=== PATIENT | female | born 1965 | race Caucasian/White ===

== ENCOUNTER 2019-07-30 18:14 | Inpatient (IN) | payer MEDICARE ==
[2019-07-30] MEDS ORDERED: Ondansetron 4 MG/2 ML SDV IVPUSH ONE (18:26)
[2019-07-30] MEDS ORDERED: Pantoprazole 40 MG Vial IVPUSH ONE (18:26)
[2019-07-30] MEDS ORDERED: cefTRIAXone 1 GM in Sodium Chloride 0.9% 100 ML IV ONE (18:26)
[2019-07-30] MEDS ORDERED: metroNIDAZOLE/Normal Saline 500 MG in Premix Bag 1 BAG IV ONE (18:26)
[2019-07-30] MEDS ORDERED: Lactated Ringers 1,000 ML IV ONE (18:26)
[2019-07-30] MEDS ORDERED: Famotidine 20 MG/2 ML SDV IVPUSH ONE (18:26)
--- NOTE | 2019-07-30 18:26 | EDM.PDOC ---
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 dose of IV television the emergency room for pain control. Note that IV Rocephin and IV Flagyl were initiated immediately after blood cultures 2 and urine specimen for culture and sensitivity were obtained. Abdominal pain improved with the above therapy. Patient was also started on a 1 L LR IV bolus of lactated Ringer's with continuation of IV fluids during this hospitalization. She will be initially kept nothing by mouth. Abdominal checks with vitals. Surgical consultation depending on her clinical course. Patient does still need a screening colonoscopy with consideration of colonoscopy and/additional EGD in about 4 weeks. Repeat x-rays and laboratories in the a.m. (2) Peptic reflux disease SNOMED Code(s): 919940942 Code(s): K21.9 - GASTRO-ESOPHAGEAL REFLUX DISEASE WITHOUT ESOPHAGITIS Status: Chronic Priority: Medium Current Visit: Yes Annotation/Comment:: Stable by history. Note high-dose IV Pepcid and Protonix given in the emergency room, which will be continued during this hospitalization. (3) Iron deficiency anemia SNOMED Code(s): 67723594 Code(s): D50.9 - IRON DEFICIENCY ANEMIA, UNSPECIFIED Status: Chronic Priority: Medium Current Visit: Yes Annotation/Comment:: Iron studies in the a.m. Qualifiers: Iron deficiency anemia type: other iron deficiency Qualified Code(s): D50.8 - Other iron deficiency anemias (4) Eczema SNOMED Code(s): 31205068 Code(s): L30.9 - DERMATITIS, UNSPECIFIED Status: Chronic Priority: Medium Current Visit: Yes Annotation/Comment:: Mild sternal eczemastable by history with previous nonresponsiveness to topical steroid cream. Observe for now. Qualifiers: Eczema type: other Qualified Code(s): L30.8 - Other specified dermatitis (5) Obesity (BMI 35.0-39.9 without comorbidity) SNOMED Code(s): 562133740, 429164008 Code(s): E66.9 - OBESITY, UNSPECIFIED Status: Chronic Priority: Medium Current Visit: Yes Annotation/Comment:: Weight loss in moderation advisable with low-fat, low-cholesterol diet provided at discharge. - Problem List Review Problem List Initiated/Reviewed/Updated: Yes - My Orders Last 24 Hours: My Active Orders 07/30/19 18:26 Peripheral IV Care [RC] . DIRECTED Sodium Chloride 0.9% [Saline Flush] 10 ml FLUSH ASDIRECTED PRN Blood Culture x2 Reflex Set [OM.PC] Urgent Obtain Past Medical Record [OM.PC] Urgent Peripheral IV Insertion Adult [OM.PC] Stat Resuscitation Status Stat 07/30/19 18:30 CULTURE URINE [RM] Stat 07/30/19 18:32 Abdomen Pelvis w Cont [CT] Stat 07/30/19 18:38 CULTURE BLOOD [BC] Stat 07/30/19 18:44 CULTURE BLOOD [BC] Stat 07/30/19 Breakfast Nothing Per Oral Diet [DIET] - Assessment/Plan Admission H&P: Please use this note as an admission H&P Last 24 Hours: My Active Orders 07/30/19 18:26 Peripheral IV Care [RC] . DIRECTED Sodium Chloride 0.9% [Saline Flush] 10 ml FLUSH ASDIRECTED PRN Blood Culture x2 Reflex Set [OM.PC] Urgent Obtain Past Medical Record [OM.PC] Urgent Peripheral IV Insertion Adult [OM.PC] Stat Resuscitation Status Stat 07/30/19 18:30 CULTURE URINE [RM] Stat 07/30/19 18:32 Abdomen Pelvis w Cont [CT] Stat 07/30/19 18:38 CULTURE BLOOD [BC] Stat 07/30/19 18:44 CULTURE BLOOD [BC] Stat 07/30/19 Breakfast Nothing Per Oral Diet [DIET] Assessment:: As above Plan: As above. Extensive precautions were given to the patient, who is in agreement with the treatment plan. Elvin Farley M.D. at the [facility] assumes care in the a.m.. The patient will require about 3-4 days of inpatient/ acute care secondary to multiple health problems as above.
[2019-07-30] MEDS ORDERED: Iopamidol 612 MG/ML 100 ML Bottle ONE (19:05)
[2019-07-30] MEDS ORDERED: Iopamidol 612 MG/ML 100 ML Bottle IVPUSH ONE (20:00)
[2019-07-30] MEDS ORDERED: Temazepam 15 MG Cap PO PRN (20:00)
[2019-07-30] MEDS ORDERED: Acetaminophen 325 MG Tab PO ONE (20:28)
[2019-07-30] MEDS ORDERED: HYDROmorphone 1 MG/ML Syringe IVPUSH ONE (20:51)
[2019-07-30] MEDS: D5 1/2 NS w/ 20 mEq/L KCl 1,000 ML IV SCH (23:07)
[2019-07-31] MEDS ORDERED: Ondansetron 4 MG/2 ML SDV IVPUSH PRN (01:00)
[2019-07-31] MEDS: HYDROmorphone 0.5 MG/0.5 ML Syringe IVPUSH PRN ×3 (01:57→15:21)
[2019-07-31] MEDS: Acetaminophen 325 MG Tab PO PRN ×4 (03:30→23:55)
[2019-07-31] MEDS: traMADol 50 MG Tab PO PRN ×2 (03:30→11:57)
[2019-07-31] MEDS: metroNIDAZOLE/Normal Saline 500 MG in Premix Bag 1 BAG IV SCH ×3 (03:34→20:31)
[2019-07-31] MEDS: Sodium Chloride 0.9% 10 ML Syringe FLUSH PRN ×5 (03:35→15:22)
[2019-07-31] MEDS: Famotidine 20 MG/2 ML SDV IVPUSH SCH ×2 (06:02→17:38)
[2019-07-31] MEDS: Sodium Chloride 0.9% 10 ML Syringe FLUSH SCH ×2 (08:35→19:49)
[2019-07-31] MEDS: Pantoprazole 40 MG Vial IVPUSH SCH ×2 (08:35→19:49)
[2019-07-31] MEDS: cefTRIAXone 1 GM in Sodium Chloride 0.9% 100 ML IV SCH ×2 (08:35→19:47)
[2019-07-31 08:46] LABS: CHLORIDE,CL 105 mmol/L (98-107); SODIUM,NA 139 mmol/L (136-145)
[2019-07-31] MEDS: D5 1/2 NS w/ 20 mEq/L KCl 1,000 ML IV SCH (11:38)
--- NOTE | 2019-07-31 20:09 | PCM.PN ---
- General Info Date of Service: 07/31/19 Admission Dx/Problem (Free Text): Patient is seen with left lower quadrant pain admitted to the hospital secondary to diverticulitis Functional Status: Reports: Pain Controlled - Review of Systems General: Reports: Weakness HEENT: Reports: No Symptoms Pulmonary: Reports: No Symptoms Cardiovascular: Reports: No Symptoms Gastrointestinal: Reports: Abdominal Pain Genitourinary: Reports: No Symptoms Musculoskeletal: Reports: No Symptoms Skin: Reports: No Symptoms Neurological: Reports: No Symptoms Psychiatric: Reports: No Symptoms - Patient Data Vitals - Most Recent: Last Vital Signs Temp 101.1 F H 07/31/19 19:53 Pulse 84 07/31/19 19:53 Resp 17 07/31/19 19:53 BP 114/65 07/31/19 19:53 Pulse Ox 95 07/31/19 19:53 Weight - Most Recent: 212 lb 7.986 oz I&O - Last 24 Hours: Intake & Output 07/31/19 07/31/19 07/31/19 06:59 14:59 22:59 Intake Total 2226 90 585 Output Total 400 100 900 Balance 1826 -10 -315 Lab Results Last 24 Hours: Laboratory Results - last 24 hr 07/31/19 07/31/19 07/31/19 Range/Units 07:10 07:10 07:10 WBC 13.3 H (4.0-10.2) K/uL RBC 4.16 (3.77-5.09) M/uL Hgb 12.6 D (11.7-15.5) g/dL Hct 38.8 (34.0-46.0) % MCV 93.3 (84.0-98.0) fL MCH 30.3 (28.2-33.3) pg MCHC 32.5 (31.7-36.0) g/dL RDW 13.4 (11.2-14.1) % Plt Count 175 (150-350) K/uL Neut % (Auto) 77.0 (45.0-80.0) % Lymph % (Auto) 10.9 (10.0-50.0) % [place] % (Auto) 10.8 (2.0-14.0) % Eos % (Auto) 1.1 (0.0-5.0) % Baso % (Auto) 0.2 (0.0-2.0) % Neut # (Auto) 10.26 H (1.40-7.00) K/uL Lymph # (Auto) 1.45 (0.50-3.50) K/uL [place] # (Auto) 1.44 H (0.00-1.00) K/uL Eos # (Auto) 0.14 (0.00-0.50) K/uL Baso # (Auto) 0.03 (0.00-0.20) K/uL Sodium 139 (136-145) mmol/L Potassium 3.9 (3.5-5.1) mmol/L Chloride 105 (98-107) mmol/L Carbon Dioxide 23.1 (21.0-32.0) mmol/L BUN 13 (7-18) mg/dL Creatinine 0.95 (0.51-1.17) mg/dL Est Cr Clr Drug Dosing 64.11 mL/min Estimated GFR (MDRD) > 60 mL/min Glucose 113 H (74-106) mg/dL Calcium 8.1 L (8.5-10.1) mg/dL Iron 14 L (50-175) ug/dL TIBC 232 L (250-450) ug/dL % Saturation 6.72954 Ferritin 211 (8-388) ng/mL Total Bilirubin 0.6 (0.2-1.0) mg/dL AST 8 L (15-37) U/L ALT 15 (12-78) U/L Alkaline Phosphatase 56 (46-116) IU/L Total Protein 6.8 (6.4-8.2) g/dL Albumin 2.9 L (3.4-5.0) g/dL Vitamin B12 351 (193-986) pg/mL Michele Results Last 24 Hours: Microbiology 07/30/19 18:44 Aerobic Blood Culture - Preliminary Blood - Venous - Lab Draw NO GROWTH AFTER 1 DAY Anaerobic Blood Culture - Preliminary NO GROWTH AFTER 1 DAY 07/30/19 18:38 Aerobic Blood Culture - Preliminary Blood - Venous NO GROWTH AFTER 1 DAY Anaerobic Blood Culture - Preliminary NO GROWTH AFTER 1 DAY 07/31/19 16:15 Stool Occult Blood (MICHELE) - Final Stool / Feces 07/31/19 16:15 Stool Occult Blood (MICHELE) - Final Stool / Feces 07/30/19 18:50 Stool Occult Blood (MICHELE) - Final Stool / Feces Med Orders - Current: Current Medications Acetaminophen (Tylenol) 650 mg PO Q4H PRN PRN Reason: Pain Last Admin: 07/31/19 17:23 Dose: 650 mg Famotidine (Pepcid) 20 mg IVPUSH Q12H [facility] Last Admin: 07/31/19 17:38 Dose: 20 mg Hydromorphone HCl (Dilaudid) 0.5 mg IVPUSH Q4H PRN PRN Reason: Pain (severe 7-10) Last Admin: 07/31/19 15:21 Dose: 0.5 mg Potassium Chloride/Dextrose/Sod Cl (D5 1/2 Ns W/ 20 Meq/L Kcl) 1,000 mls @ 100 mls/hr IV ASDIRECTED [facility] Last Admin: 07/31/19 11:38 Dose: 100 mls/hr Ceftriaxone Sodium 1 gm/ (Sodium Chloride) 100 mls @ 200 mls/hr IV Q12H [facility] Last Admin: 07/31/19 19:47 Dose: 200 mls/hr Metronidazole 500 mg/ Premix 100 mls @ 100 mls/hr IV Q8H [facility] Last Infusion: 07/31/19 12:35 Dose: Infused Influenza Virus Vaccine (Pharmacy To Dose - Influenza Vaccine) 1 each IM ONETIME ONE Stop: 07/31/19 16:46 Ondansetron HCl (Zofran) 4 mg IVPUSH Q6H PRN PRN Reason: Nausea/Vomiting Pantoprazole Sodium (Protonix Iv) 40 mg IVPUSH Q12H [facility] Last Admin: 07/31/19 19:49 Dose: 40 mg Sodium Chloride (Saline Flush) 10 ml FLUSH ASDIRECTED PRN PRN Reason: Keep Vein Open Last Admin: 07/31/19 15:22 Dose: 10 ml Sodium Chloride (Saline Flush) 10 ml FLUSH Q12HR [facility] Last Admin: 07/31/19 19:49 Dose: 10 ml Temazepam (Restoril) 15 mg PO DAILY@2000 PRN PRN Reason: Insomnia Last Admin: 07/30/19 23:16 Dose: 15 mg Tramadol HCl (Ultram) 50 mg PO Q6H PRN PRN Reason: Pain (moderate 4-6) Last Admin: 07/31/19 11:57 Dose: 50 mg Discontinued Medications Acetaminophen (Tylenol) 650 mg PO NOW ONE Stop: 07/30/19 20:29 Last Admin: 07/30/19 20:48 Dose: 650 mg Famotidine (Pepcid) 40 mg IVPUSH ONETIME ONE Stop: 07/30/19 18:27 Last Admin: 07/30/19 19:18 Dose: 40 mg Hydromorphone HCl (Dilaudid) 1 mg IVPUSH ONETIME ONE Stop: 07/30/19 20:52 Last Admin: 07/30/19 21:02 Dose: 1 mg Ceftriaxone Sodium 1 gm/ (Sodium Chloride) 100 mls @ 200 mls/hr IV ONETIME ONE Stop: 07/30/19 18:55 Last Admin: 07/30/19 19:04 Dose: 200 mls/hr Lactated Ringer's (Ringers, Lactated) 1,000 mls @ 999 mls/hr IV .BOLUS ONE Stop: 07/30/19 19:26 Last Admin: 07/30/19 20:59 Dose: 999 mls/hr Metronidazole 500 mg/ Premix 100 mls @ 100 mls/hr IV ONETIME ONE Stop: 07/30/19 19:25 Last Admin: 07/30/19 19:42 Dose: 100 mls/hr Iopamidol (Isovue-300 (61%)) 100 ml IVPUSH ONETIME ONE Stop: 07/30/19 20:01 Last Admin: 07/30/19 20:30 Dose: 100 ml Iopamidol (Isovue-300 (61%)) Confirm Administered Dose 100 ml .ROUTE .STK-MED ONE Stop: 07/30/19 19:06 Ondansetron HCl (Zofran) 4 mg IVPUSH ONETIME ONE Stop: 07/30/19 18:27 Last Admin: 07/30/19 19:14 Dose: 4 mg Pantoprazole Sodium (Protonix Iv) 40 mg IVPUSH ONETIME ONE Stop: 07/30/19 18:27 Last Admin: 07/30/19 19:18 Dose: 40 mg - Exam General: Alert, Oriented HEENT: Pupils Equal, Pupils Reactive, EOMI, Mucous Membr. Moist/[place] Neck: Supple Lungs: Clear to Auscultation, Normal Respiratory Effort Cardiovascular: Regular Rate, Regular Rhythm GI/Abdominal Exam: Guarding, Tender Back Exam: Normal Inspection, Full Range of Motion Extremities: Normal Inspection, Normal Range of Motion, Non-Tender, No Pedal Edema, Normal Capillary Refill Skin: Warm, Dry, Intact Neurological: No New Focal Deficit Psy/Mental Status: Alert, Normal Affect, Normal Mood - Problem List & Annotations (1) Diverticulitis SNOMED Code(s): 015698755 Code(s): K57.92 - DVTRCLI OF INTEST, PART UNSP, W/O PERF OR ABSCESS W/O BLEED Status: Acute Priority: High Current Visit: Yes Onset Date: ~07/28 Annotation/Comment:: . Patient started on antibiotic and pain control and did well till today we will now has increased discomfort at this time I will continue monitoring her medications and see if she becomes afebrile or ecchymosis of symptoms of we do have a CT which shows significant diverticulitis with possible mitral perforation - Problem List Review Problem List Initiated/Reviewed/Updated: Yes - My Orders Last 24 Hours: My Active Orders 07/30/19 22:41 Consult to Case Management/Green Chain Marker [CONS] Routine 07/31/19 16:45 Influenza Vaccine Charge [RC] .DISCHARGE Pharmacy to Dose - InFluenza V [Pharmacy to Dose - InFluenza Vaccine] 1 each IM ONETIME ONE
[2019-08-01] MEDS: D5 1/2 NS w/ 20 mEq/L KCl 1,000 ML IV SCH ×2 (00:21→11:58)
[2019-08-01] MEDS: metroNIDAZOLE/Normal Saline 500 MG in Premix Bag 1 BAG IV SCH ×2 (04:06→11:58)
[2019-08-01] MEDS: Famotidine 20 MG/2 ML SDV IVPUSH SCH ×2 (05:00→17:35)
[2019-08-01] MEDS: HYDROmorphone 0.5 MG/0.5 ML Syringe IVPUSH PRN ×2 (06:42→15:41)
[2019-08-01] MEDS: Sodium Chloride 0.9% 10 ML Syringe FLUSH PRN ×3 (06:45→15:55)
[2019-08-01] MEDS ORDERED: Aluminum Hydroxide/Magnesium Hydroxide/Simethicone Susp 30 ML Cup PO PRN (07:51)
[2019-08-01] MEDS: Acetaminophen 325 MG Tab PO PRN ×2 (08:59→16:39)
[2019-08-01] MEDS: Pantoprazole 40 MG Vial IVPUSH SCH (08:59)
[2019-08-01] MEDS: Sodium Chloride 0.9% 10 ML Syringe FLUSH SCH ×2 (08:59→19:29)
[2019-08-01] MEDS: cefTRIAXone 1 GM in Sodium Chloride 0.9% 100 ML IV SCH ×2 (09:01→19:24)
[2019-08-01 09:21] LABS: CHLORIDE,CL 106 mmol/L (98-107); SODIUM,NA 140 mmol/L (136-145)
--- NOTE | 2019-08-01 10:00 | PCM.PN ---
- General Info Date of Service: 08/01/19 Admission Dx/Problem (Free Text): 1. Diverticulitis with microperforation 2. Peritonitis Functional Status: Reports: Pain Controlled, Ambulating, Urinating. Denies: Tolerating Diet (Still nothing by mouth, however patient is wishing to have breakfast.), New Symptoms, Incentive Spirometry Pain Score: 4 - Review of Systems General: Reports: Fever (Resolved this morning with maximum temperature of 38.4 C during the last 24 hours). Denies: Weakness, Fatigue, Malaise, Chills, Night Sweats, Appetite HEENT: Reports: No Symptoms. Denies: Ear Pain, Eye Pain, Glasses, Sinus Congestion, Sore Throat, Rhinitis, Visual Changes Pulmonary: Reports: No Symptoms. Denies: Shortness of Breath, Pleuritic Chest Pain, Cough, Sputum, Wheezing Cardiovascular: Reports: No Symptoms. Denies: Chest Pain, Palpitations, Dyspnea on Exertion, Orthopnea, Edema, Lightheadedness Gastrointestinal: Reports: Abdominal Pain (Slowly improving), Diarrhea (2 loose bowel movements since admission). Denies: Constipation, Decreased Appetite, Difficulty Swallowing, Hematochezia, Melena, Nausea, Vomiting Genitourinary: Reports: No Symptoms. Denies: Dysuria, Frequency, Burning, Urgency, Incontinence, Hematuria, Retention, Flank Pain Musculoskeletal: Reports: No Symptoms. Denies: Neck Pain, Shoulder Pain, Arm Pain, Back Pain, Leg Pain Skin: Reports: No Symptoms. Denies: Jaundice, Pallor, Diaphoresis, Bruising, Pruritis, Rash Neurological: Reports: No Symptoms. Denies: Confusion, Dizziness, Headache, Numbness, Paresthesia, Tingling, Weakness Psychiatric: Reports: No Symptoms. Denies: Confusion, Agitation, Cravings, Hallucinations - Patient Data Vitals - Most Recent: Last Vital Signs Temp 36.6 C 08/01/19 04:00 Pulse 75 08/01/19 04:00 Resp 16 08/01/19 04:00 BP 105/65 08/01/19 04:00 Pulse Ox 96 08/01/19 04:00 Vital Signs - 24 hr 07/31/19 07/31/19 07/31/19 12:00 14:03 16:00 Temperature [ 37.1 C 37.0 C 36.6 C Oral] Pulse, 76 79 70 Peripheral [ Pulse Oximetry] Respiratory 12 20 15 Rate Blood Pressure 98/61 102/52 L 97/55 L [Right Upper Arm] O2 Sat by Pulse 94 L 96 95 Oximetry 07/31/19 07/31/19 08/01/19 19:53 20:30 00:00 Temperature [ 38.4 C H 38.0 C 38.1 C Oral] Pulse, 84 64 Peripheral [ Pulse Oximetry] Respiratory 17 15 Rate Blood Pressure 114/65 117/65 [Right Upper Arm] O2 Sat by Pulse 95 96 Oximetry 08/01/19 08/01/19 00:24 04:00 Temperature [ 37.2 C 36.6 C Oral] Pulse, 75 Peripheral [ Pulse Oximetry] Respiratory 16 Rate Blood Pressure 105/65 [Right Upper Arm] O2 Sat by Pulse 96 Oximetry Weight - Most Recent: 96.388 kg I&O - Last 24 Hours: Intake & Output 07/31/19 08/01/19 08/01/19 22:59 06:59 14:59 Intake Total 685 1148 Output Total 1100 1400 Balance -415 -252 Imaging Impressions - Last 24 Hours: Official x-ray report from acute abdominal x-rays from 07/31/19 was reviewed today. Nonspecific gaseous pattern with no evidence of significant free air, etc. Lab Results Last 24 Hours: Laboratory Results - last 24 hr 08/01/19 08/01/19 Range/Units 09:01 09:01 WBC 11.9 H (4.0-10.2) K/uL RBC 4.17 (3.77-5.09) M/uL Hgb 12.7 (11.7-15.5) g/dL Hct 38.8 (34.0-46.0) % MCV 93.0 (84.0-98.0) fL MCH 30.5 (28.2-33.3) pg MCHC 32.7 (31.7-36.0) g/dL RDW 13.1 (11.2-14.1) % Plt Count 171 (150-350) K/uL Neut % (Auto) 77.2 (45.0-80.0) % Lymph % (Auto) 11.4 (10.0-50.0) % [place] % (Auto) 9.9 (2.0-14.0) % Eos % (Auto) 1.3 (0.0-5.0) % Baso % (Auto) 0.2 (0.0-2.0) % Neut # (Auto) 9.16 H (1.40-7.00) K/uL Lymph # (Auto) 1.35 (0.50-3.50) K/uL [place] # (Auto) 1.17 H (0.00-1.00) K/uL Eos # (Auto) 0.15 (0.00-0.50) K/uL Baso # (Auto) 0.02 (0.00-0.20) K/uL Sodium 140 (136-145) mmol/L Potassium 4.1 (3.5-5.1) mmol/L Chloride 106 (98-107) mmol/L Carbon Dioxide 25.3 (21.0-32.0) mmol/L BUN 7 (7-18) mg/dL Creatinine 0.87 (0.51-1.17) mg/dL Est Cr Clr Drug Dosing 70.39 mL/min Estimated GFR (MDRD) > 60 mL/min Glucose 104 (74-106) mg/dL Calcium 8.2 L (8.5-10.1) mg/dL Total Bilirubin 0.5 (0.2-1.0) mg/dL AST 8 L (15-37) U/L ALT 14 (12-78) U/L Alkaline Phosphatase 58 (46-116) IU/L Total Protein 6.9 (6.4-8.2) g/dL Albumin 2.9 L (3.4-5.0) g/dL Jeremy Results Last 24 Hours: Microbiology 07/30/19 18:30 Urine Culture - Final Urine, Clean Catch MIXED POSITIVE ELOISE DAY 2 07/30/19 18:44 Aerobic Blood Culture - Preliminary Blood - Venous - Lab Draw NO GROWTH AFTER 1 DAY Anaerobic Blood Culture - Preliminary NO GROWTH AFTER 1 DAY 07/30/19 18:38 Aerobic Blood Culture - Preliminary Blood - Venous NO GROWTH AFTER 1 DAY Anaerobic Blood Culture - Preliminary NO GROWTH AFTER 1 DAY 07/31/19 16:15 Stool Occult Blood (JEREMY) - Final Stool / Feces 07/31/19 16:15 Stool Occult Blood (JEREMY) - Final Stool / Feces Hemoccult of stools 3 were negative Med Orders - Current: Current Medications Acetaminophen (Tylenol) 650 mg PO Q4H PRN PRN Reason: Pain Last Admin: 08/01/19 08:59 Dose: 650 mg Al Hydroxide/Mg Hydroxide (Mag-Al Plus) 30 ml PO Q4H PRN PRN Reason: GI Upset Last Admin: 08/01/19 09:00 Dose: 30 ml Famotidine (Pepcid) 20 mg IVPUSH Q12H [facility] Last Admin: 08/01/19 05:00 Dose: 20 mg Hydromorphone HCl (Dilaudid) 0.5 mg IVPUSH Q4H PRN PRN Reason: Pain (severe 7-10) Last Admin: 08/01/19 06:42 Dose: 0.5 mg Potassium Chloride/Dextrose/Sod Cl (D5 1/2 Ns W/ 20 Meq/L Kcl) 1,000 mls @ 100 mls/hr IV ASDIRECTED [facility] Last Admin: 08/01/19 00:21 Dose: 100 mls/hr Ceftriaxone Sodium 1 gm/ (Sodium Chloride) 100 mls @ 200 mls/hr IV Q12H [facility] Last Admin: 08/01/19 09:01 Dose: 200 mls/hr Metronidazole 500 mg/ Premix 100 mls @ 100 mls/hr IV Q8H [facility] Last Admin: 08/01/19 04:06 Dose: 100 mls/hr Influenza Virus Vaccine (Pharmacy To Dose - Influenza Vaccine) 1 each IM ONETIME ONE Stop: 07/31/19 16:46 Ondansetron HCl (Zofran) 4 mg IVPUSH Q6H PRN PRN Reason: Nausea/Vomiting Pantoprazole Sodium (Protonix Iv) 40 mg IVPUSH Q12H [facility] Last Admin: 08/01/19 08:59 Dose: 40 mg Sodium Chloride (Saline Flush) 10 ml FLUSH ASDIRECTED PRN PRN Reason: Keep Vein Open Last Admin: 08/01/19 06:45 Dose: 10 ml Sodium Chloride (Saline Flush) 10 ml FLUSH Q12HR [facility] Last Admin: 08/01/19 08:59 Dose: 10 ml Temazepam (Restoril) 15 mg PO DAILY@2000 PRN PRN Reason: Insomnia Last Admin: 07/30/19 23:16 Dose: 15 mg Tramadol HCl (Ultram) 50 mg PO Q6H PRN PRN Reason: Pain (moderate 4-6) Last Admin: 07/31/19 11:57 Dose: 50 mg Discontinued Medications Acetaminophen (Tylenol) 650 mg PO NOW ONE Stop: 07/30/19 20:29 Last Admin: 07/30/19 20:48 Dose: 650 mg Famotidine (Pepcid) 40 mg IVPUSH ONETIME ONE Stop: 07/30/19 18:27 Last Admin: 07/30/19 19:18 Dose: 40 mg Hydromorphone HCl (Dilaudid) 1 mg IVPUSH ONETIME ONE Stop: 07/30/19 20:52 Last Admin: 07/30/19 21:02 Dose: 1 mg Ceftriaxone Sodium 1 gm/ (Sodium Chloride) 100 mls @ 200 mls/hr IV ONETIME ONE Stop: 07/30/19 18:55 Last Admin: 07/30/19 19:04 Dose: 200 mls/hr Lactated Ringer's (Ringers, Lactated) 1,000 mls @ 999 mls/hr IV .BOLUS ONE Stop: 07/30/19 19:26 Last Admin: 07/30/19 20:59 Dose: 999 mls/hr Metronidazole 500 mg/ Premix 100 mls @ 100 mls/hr IV ONETIME ONE Stop: 07/30/19 19:25 Last Admin: 07/30/19 19:42 Dose: 100 mls/hr Iopamidol (Isovue-300 (61%)) 100 ml IVPUSH ONETIME ONE Stop: 07/30/19 20:01 Last Admin: 07/30/19 20:30 Dose: 100 ml Iopamidol (Isovue-300 (61%)) Confirm Administered Dose 100 ml .ROUTE .STK-MED ONE Stop: 07/30/19 19:06 Ondansetron HCl (Zofran) 4 mg IVPUSH ONETIME ONE Stop: 07/30/19 18:27 Last Admin: 07/30/19 19:14 Dose: 4 mg Pantoprazole Sodium (Protonix Iv) 40 mg IVPUSH ONETIME ONE Stop: 07/30/19 18:27 Last Admin: 07/30/19 19:18 Dose: 40 mg - Exam Quality Assessment: DVT Prophylaxis. No: Supplemental Oxygen, Central Line/PICC , Urine Catheter, Restraints General: Alert, Oriented, Cooperative, No Acute Distress HEENT: Pupils Equal, Pupils Reactive, EOMI, Mucous Membr. Moist/Accident. No: Scleral Icterus Neck: Supple, Trachea Midline, No JVD, No Thyromegaly. No: Lymphadenopathy Lungs: Clear to Auscultation, Normal Respiratory Effort. No: Rales, Rhonchi, Wheezing Cardiovascular: Regular Rate, Regular Rhythm, No Murmurs. No: Gallops, Rubs GI/Abdominal Exam: Normal Bowel Sounds (Returned bowel sounds Non-in nature), No Distention (Results distention from admission), No Abnormal Bruit, No Mass, Rebound (Improved borderline mild peritoneal signs), Tender (Somewhat improved mild diffuse palpation pain particularly in the left lower quadrant). No: Guarding, Rigid (Female) Exam: Deferred Back Exam: Normal Inspection, Full Range of Motion. No: CVA Tenderness (L), CVA Tenderness (R), Muscle Spasm Extremities: Normal Inspection, Normal Range of Motion, Non-Tender, No Pedal Edema, Normal Capillary Refill. No: Pedal Edema Peripheral Pulses: 2+: Radial (L), Radial (R), Dorsalis Pedis (L), Dorsalis Pedis (R) Skin: Warm, Dry, Intact. No: Rash, Ecchymosis Neurological: No New Focal Deficit Psy/Mental Status: Alert, Normal Affect, Normal Mood. No: Agitated, Hallucinations, Withdrawal Symptoms - Problem List & Annotations (1) Diverticulitis SNOMED Code(s): 035665529 Code(s): K57.92 - DVTRCLI OF INTEST, PART UNSP, W/O PERF OR ABSCESS W/O BLEED Status: Acute Priority: High Current Visit: Yes Onset Date: ~07/28 Annotation/Comment:: Note positive CT scan prior to admission with moderate diverticulitis and possible microperforation. Follow-up x-rays yesterday showed no significant free air with refractory fever yesterday, although the patient is afebrile this morning. Her leukocytosis and physical exam has also improved this morning, including her peritoneal signs. Continue aggressive IV Rocephin and IV Flagyl therapy with further surgical consultation depending on her clinical course. The patient is wanting to eat breakfast this morning with breakfast started after blood work was received. Continue abdominal assessments with vitals secondary to her persistent peritonitis. Note Hemoccult 3 were negative. Repeat blood work and x-rays in the a.m.. (2) Peritonitis SNOMED Code(s): 72879561 Code(s): K65.9 - PERITONITIS, UNSPECIFIED Status: Acute Current Visit: Yes Onset Date: 07/30/19 Annotation/Comment:: As above (3) Peptic reflux disease SNOMED Code(s): 568862794 Code(s): K21.9 - GASTRO-ESOPHAGEAL REFLUX DISEASE WITHOUT ESOPHAGITIS Status: Chronic Priority: Medium Current Visit: Yes Annotation/Comment:: Stable by history and during this hospitalization. Note high-dose IV Pepcid and Protonix given in the emergency room, which was continued during this hospitalization. (4) Iron deficiency anemia SNOMED Code(s): 88089851 Code(s): D50.9 - IRON DEFICIENCY ANEMIA, UNSPECIFIED Status: Chronic Priority: Medium Current Visit: Yes Onset Date: 07/31/19 Qualifiers: Iron deficiency anemia type: other iron deficiency Qualified Code(s): D50.8 - Other iron deficiency anemias Annotation/Comment:: Iron studies on 07/31 confirmed persistent iron deficiency with no significant anemia at this time. Secondary to her current peritonitis delay initiation of iron supplementation for now. Attempt to initiate iron supplementation during this hospitalization with subsequent close follow-up with her regular provider after discharge. Vitamin B 12 level on 07/31 was normal. 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 Observe for now. (6) Obesity (BMI 35.0-39.9 without comorbidity) SNOMED Code(s): 370145610, 444713587 Code(s): E66.9 - OBESITY, UNSPECIFIED Status: Chronic Priority: Medium Current Visit: Yes Annotation/Comment:: Weight loss in moderation advisable with low-fat, low-cholesterol diet provided at discharge. (7) Hypocalcemia SNOMED Code(s): 3806548 Code(s): E83.51 - HYPOCALCEMIA Status: Acute Priority: Medium Current Visit: Yes Onset Date: 07/31/19 Annotation/Comment:: Observe for now (8) Hypoalbuminemia SNOMED Code(s): 746995861 Code(s): E88.09 - OTH DISORDERS OF PLASMA-PROTEIN METABOLISM, NEC Status: Acute Priority: Medium Current Visit: Yes Onset Date: 07/31/19 Annotation/Comment:: Observe for now - Problem List Review Problem List Initiated/Reviewed/Updated: Yes - My Orders Last 24 Hours: My Active Orders 08/01/19 Breakfast Full Liquid Diet [DIET] 08/02/19 05:11 Abdomen Series w Chest 1V [CR] Routine AMYLASE [CHEM] Routine CBC WITH AUTO DIFF [HEME] Routine COMPREHENSIVE METABOLIC PN,CMP [CHEM] Routine LIPASE [CHEM] Routine - Assessment Assessment:: As above - Plan Plan:: As above. Extensive precautions were given to the patient, who is in agreement with the treatment plan. Extended hospitalization may be required secondary to patient's refractory symptoms.
[2019-08-01] MEDS: traMADol 50 MG Tab PO PRN (16:38)
--- NOTE | 2019-08-01 20:04 | PCM.DCSUM1 ---
Discharge Summary - Hospital Course HPI Initial Comments: See emergency room note/admission H&P Brief History: See emergency room note/admission H&P Diagnosis: Stroke: No Modified [place] Scale: No Symptoms at All Modified [place] Scale Score: 0 - Discharge Data Discharge Date: 08/01/19 Discharge Disposition: DC/Tfer to Acute Hospital 02 Condition: Good - Referral to Home Health Primary Care Physician: PCP None - Discharge Diagnosis/Problem(s) (1) Diverticulitis SNOMED Code(s): 311929977 ICD Code: K57.92 - DVTRCLI OF INTEST, PART UNSP, W/O PERF OR ABSCESS W/O BLEED Status: Acute Priority: High Current Visit: Yes Onset Date: ~07/28 Problem Details: Patient did initially show improved/resolved fever and improved leukocytosis earlier today, however returned fever and progressive abdominal pain and peritoneal signs later this afternoon extending into this evening. Note that after onset of the above symptoms patient was changed from her newly started puried, liquid, diverticulitis, heart healthy diet back to her previous nothing by mouth with exception of ice chips, however symptoms did not improve. Repeat x-rays this evening shortly prior to patient's transfer showed persistent nonspecific increased bowel gaseous pattern with mildly beginning fluid levels and also mild free air under the right hemidiaphragm. Note positive CT scan prior to admission with moderate diverticulitis and possible microperforation. Follow-up x-rays yesterday showed no significant free air with refractory fever yesterday, although the patient was afebrile this morning as above. Her leukocytosis and physical exam was also improved this morning, including her peritoneal signs. Aggressive IV Rocephin and IV Flagyl therapy was continued throughout this hospitalization with further surgical consultation now required. Telephone consultation at 19:50 hours with Mark Witt M.D., emergency room physician from [facility] in [place], who does accept the patient for further treatment and evaluation, with no further treatment recommendations given. Ambulance transfer with guide excursion accompaniment with patient to remain nothing by mouth as above. Note Hemoccult 2 were negative during this hospitalization. (2) Peritonitis SNOMED Code(s): 75706000 ICD Code: K65.9 - PERITONITIS, UNSPECIFIED Status: Acute Current Visit: Yes Onset Date: 07/30/19 Problem Details: As above (3) Peptic reflux disease SNOMED Code(s): 229409722 ICD Code: K21.9 - GASTRO-ESOPHAGEAL REFLUX DISEASE WITHOUT ESOPHAGITIS Status: Chronic Priority: Medium Current Visit: Yes Problem Details: Stable by history and during this hospitalization. Note high-dose IV Pepcid and Protonix given in the emergency room, which was continued during this hospitalization. (4) Iron deficiency anemia SNOMED Code(s): 05228235 ICD Code: D50.9 - IRON DEFICIENCY ANEMIA, UNSPECIFIED Status: Chronic Priority: Medium Current Visit: Yes Onset Date: 07/31/19 Problem Details: Iron studies on 07/31 confirmed persistent iron deficiency with no significant anemia at this time. Secondary to her current peritonitis delay initiation of iron supplementation for now with recommendation of initiating iron supplementation after her condition improves. Vitamin B 12 level on 07/31 was normal. Qualifiers: Iron deficiency anemia type: other iron deficiency Qualified Code(s): D50.8 - Other iron deficiency anemias (5) Eczema SNOMED Code(s): 59481510 ICD Code: L30.9 - DERMATITIS, UNSPECIFIED Status: Chronic Priority: Medium Current Visit: Yes Problem Details: Mild sternal eczemastable by history with previous nonresponsiveness to topical steroid cream. Observe for now. Qualifiers: Eczema type: other Qualified Code(s): L30.8 - Other specified dermatitis (6) Obesity (BMI 35.0-39.9 without comorbidity) SNOMED Code(s): 549114489, 066518097 ICD Code: E66.9 - OBESITY, UNSPECIFIED Status: Chronic Priority: Medium Current Visit: Yes Problem Details: Weight loss in moderation advisable with low-fat, low-cholesterol, diverticulosis and/or diverticulitis diet to be provided at discharge by accepting providers. (7) Hypocalcemia SNOMED Code(s): 4532233 ICD Code: E83.51 - HYPOCALCEMIA Status: Acute Priority: Medium Current Visit: Yes Onset Date: 07/31/19 Problem Details: Observe for now (8) Hypoalbuminemia SNOMED Code(s): 543844341 ICD Code: E88.09 - OTH DISORDERS OF PLASMA-PROTEIN METABOLISM, NEC Status: Acute Priority: Medium Current Visit: Yes Onset Date: 07/31/19 Problem Details: Observe for now - Patient Summary/Data Operative Procedure(s) Performed: None Complications: Refractory peritonitis and diverticulitis with progressive free air as above. Consults: Consultations 07/30/19 22:41 Consult to Case Management/Photo Lab Specialist [CONS] Routine Labs Pending at D/C: 1. Final blood culture and sensitivity results 2. Final report of acute abdominal x-rays on 08/01/19. Recommended Follow-up Testing/Procedures: As above Planned Operative Procedure(s) after DC: Surgical consultation with possible partial colon resection with recommended EGD and colonoscopy depending on her clinical course as above. - Patient Instructions Diet: NPO Activity: Bedrest Driving: Do Not Drive Showering/Bathing: No Showering Notify Provider of: Fever, Increased Pain, Nausea and/or Vomiting Other/Special Instructions: Ambulance transfer with guide excursion accompaniment - Discharge Plan *PRESCRIPTION DRUG MONITORING PROGRAM REVIEWED*: Not Applicable *COPY OF PRESCRIPTION DRUG MONITORING REPORT IN PATIENT JOSSELINE: Not Applicable Home Medications: Home Meds Zolpidem [Ambien] 10 mg PO BEDTIME 07/30/19 [History] Oxygen Therapy Mode: Room Air Forms: ED Department Discharge, Interfacility Transfer EMTALA Referrals: PCP,None [Primary Care Provider] - - Discharge Summary/Plan Comment DC Time >30 min.: Yes (Coordination of care ) Discharge Summary/Plan Comment: As above. Extensive precautions were given to the patient, who is in agreement with the treatment plan. Ambulance transfer with guide excursion accompaniment as above. - General Info Date of Service: 08/01/19 Admission Dx/Problem (Free Text: 1. Diverticulitis with microperforation 2. Peritonitis Functional Status: Reports: Pain Controlled (Although progressive abdominal pain today requiring IV Dilaudid, oral Tylenol, and oral tramadol) Numeric/FACES Score: 8 - Review of Systems General: Reports: No Symptoms, Fever, Chills, Appetite (Worsening appetite this afternoon). Denies: Fatigue, Malaise, Night Sweats HEENT: Reports: No Symptoms. Denies: Ear Pain, Eye Pain, Post Nasal Drip, Sinus Congestion, Sore Throat, Rhinitis, Visual Changes Pulmonary: Reports: No Symptoms. Denies: Shortness of Breath, Pleuritic Chest Pain, Cough, Hemoptysis, Wheezing Cardiovascular: Reports: No Symptoms. Denies: Chest Pain, Palpitations, Dyspnea on Exertion, Orthopnea, PND, Edema, Lightheadedness Gastrointestinal: Reports: Abdominal Pain, Decreased Appetite (As above). Denies: Constipation, Difficulty Swallowing, Flatus, Hematochezia, Melena, Nausea, Vomiting Genitourinary: Reports: No Symptoms. Denies: Dysuria, Frequency, Burning, Pain , Urgency, Incontinence, Hematuria, Retention, Flank Pain Musculoskeletal: Reports: No Symptoms. Denies: Neck Pain, Shoulder Pain, Arm Pain, Back Pain, Leg Pain Skin: Reports: Rash (Stable sternal rash/eczema). Denies: Cyanosis, Jaundice, Pallor, Diaphoresis, Bruising, Pruritis Neurological: Reports: No Symptoms. Denies: Confusion, Dizziness, Headache, Numbness, Paresthesia, Tingling, Weakness Psychiatric: Reports: No Symptoms. Denies: Confusion, Agitation, Cravings, Hallucinations - Patient Data Vitals - Most Recent: Last Vital Signs Temp 37.1 C 08/01/19 19:49 Pulse 100 08/01/19 19:49 Resp 19 08/01/19 19:49 BP 138/98 H 08/01/19 19:49 Pulse Ox 97 08/01/19 19:49 Vital Signs - 24 hr 07/31/19 08/01/19 08/01/19 20:30 00:00 00:24 Temperature [ 38.0 C 38.1 C 37.2 C Oral] Temperature [ Temporal] Pulse, 64 Peripheral [ Pulse Oximetry] Respiratory 15 Rate Blood Pressure 117/65 [Right Upper Arm] O2 Sat by Pulse 96 Oximetry 08/01/19 08/01/19 08/01/19 04:00 08:00 12:00 Temperature [ 36.6 C 36.9 C Oral] Temperature [ 37.9 C Temporal] Pulse, 75 74 Peripheral [ Pulse Oximetry] Respiratory 16 20 16 Rate Blood Pressure 105/65 92/55 L [Right Upper Arm] O2 Sat by Pulse 96 97 97 Oximetry 08/01/19 08/01/19 08/01/19 16:00 18:50 19:49 Temperature [ 36.9 C 36.7 C 37.1 C Oral] Temperature [ Temporal] Pulse, 75 100 Peripheral [ Pulse Oximetry] Respiratory 20 19 Rate Blood Pressure 112/69 138/98 H [Right Upper Arm] O2 Sat by Pulse 98 97 Oximetry Weight - Most Recent: 96.388 kg I&O - Last 24 hours: Intake & Output 08/01/19 08/01/19 08/01/19 06:59 14:59 22:59 Intake Total 1148 2122 100 Output Total 1400 250 Balance -252 1872 100 Imaging Impressions - Last 24 hrs: Telephone consultation at 21:16 hours with the radiology department at [facility]. Preliminary verbal report of CT scan of the abdomen and pelvis with both IV and oral contrast showed some multiple sigmoid diverticulitis with a possible micro-diverticulum perforation without significant additional free air. Appendix is normal. CT Results Date: 07/30/19 CT Results Time: 21:16 Official x-ray report from acute abdominal x-rays from 07/31/19 was reviewed today. Nonspecific gaseous pattern with no evidence of significant free air, etc. Acute abdominal x-rays in the evening of 08/01/19 now shows evidence of small amounts of free air under the right hemidiaphragm with relatively stable diffuse nonspecific bowel gaseous pattern, although occasional borderline fluid levelsWith persistent moderate stool Lab Results - Last 24 hrs: Laboratory Results - last 24 hr 08/01/19 08/01/19 Range/Units 09:01 09:01 WBC 11.9 H (4.0-10.2) K/uL RBC 4.17 (3.77-5.09) M/uL Hgb 12.7 (11.7-15.5) g/dL Hct 38.8 (34.0-46.0) % MCV 93.0 (84.0-98.0) fL MCH 30.5 (28.2-33.3) pg MCHC 32.7 (31.7-36.0) g/dL RDW 13.1 (11.2-14.1) % Plt Count 171 (150-350) K/uL Neut % (Auto) 77.2 (45.0-80.0) % Lymph % (Auto) 11.4 (10.0-50.0) % Grady % (Auto) 9.9 (2.0-14.0) % Eos % (Auto) 1.3 (0.0-5.0) % Baso % (Auto) 0.2 (0.0-2.0) % Neut # (Auto) 9.16 H (1.40-7.00) K/uL Lymph # (Auto) 1.35 (0.50-3.50) K/uL Grady # (Auto) 1.17 H (0.00-1.00) K/uL Eos # (Auto) 0.15 (0.00-0.50) K/uL Baso # (Auto) 0.02 (0.00-0.20) K/uL Sodium 140 (136-145) mmol/L Potassium 4.1 (3.5-5.1) mmol/L Chloride 106 (98-107) mmol/L Carbon Dioxide 25.3 (21.0-32.0) mmol/L BUN 7 (7-18) mg/dL Creatinine 0.87 (0.51-1.17) mg/dL Est Cr Clr Drug Dosing 70.39 mL/min Estimated GFR (MDRD) > 60 mL/min Glucose 104 (74-106) mg/dL Calcium 8.2 L (8.5-10.1) mg/dL Total Bilirubin 0.5 (0.2-1.0) mg/dL AST 8 L (15-37) U/L ALT 14 (12-78) U/L Alkaline Phosphatase 58 (46-116) IU/L Total Protein 6.9 (6.4-8.2) g/dL Albumin 2.9 L (3.4-5.0) g/dL Laboratory Tests 07/30/19 07/30/19 07/30/19 Range/Units 18:30 18:38 18:38 WBC 13.1 H (4.0-10.2) K/uL RBC 4.77 (3.77-5.09) M/uL Hgb 14.4 (11.7-15.5) g/dL Hct 44.0 (34.0-46.0) % MCV 92.2 (84.0-98.0) fL MCH 30.2 (28.2-33.3) pg MCHC 32.7 (31.7-36.0) g/dL RDW 13.6 (11.2-14.1) % Plt Count 199 (150-350) K/uL Neut % (Auto) 80.6 H (45.0-80.0) % Lymph % (Auto) 8.7 L (10.0-50.0) % Grady % (Auto) 10.0 (2.0-14.0) % Eos % (Auto) 0.5 (0.0-5.0) % Baso % (Auto) 0.2 (0.0-2.0) % Neut # (Auto) 10.53 H (1.40-7.00) K/uL Lymph # (Auto) 1.14 (0.50-3.50) K/uL Grady # (Auto) 1.31 H (0.00-1.00) K/uL Eos # (Auto) 0.07 (0.00-0.50) K/uL Baso # (Auto) 0.03 (0.00-0.20) K/uL PT (9.5-12.0) SEC INR APTT (21.0-31.3) SEC Sodium (136-145) mmol/L Potassium (3.5-5.1) mmol/L Chloride (98-107) mmol/L Carbon Dioxide (21.0-32.0) mmol/L BUN (7-18) mg/dL Creatinine (0.51-1.17) mg/dL Est Cr Clr Drug Dosing mL/min Estimated GFR (MDRD) mL/min Glucose (74-106) mg/dL Lactic Acid (0.4-2.0) mmol/L Uric Acid (2.6-7.2) mg/dL Calcium (8.5-10.1) mg/dL Magnesium (1.8-2.4) mg/dL Iron (50-175) ug/dL TIBC (250-450) ug/dL % Saturation Ferritin (8-388) ng/mL Total Bilirubin (0.2-1.0) mg/dL AST (15-37) U/L ALT (12-78) U/L Alkaline Phosphatase (46-116) IU/L Total Protein (6.4-8.2) g/dL Albumin (3.4-5.0) g/dL Amylase 58 (25-115) U/L Lipase (73-393) U/L Vitamin B12 (193-986) pg/mL HCG, Qual (NEGATIVE) Specimen Type Urinvoid Urine Color Dark yellow Urine Appearance Clear Urine pH 5.5 (5.0-9.0) Ur Specific [place] 1.025 (1.005-1.030) Urine Protein 30 H (NEGATIVE) mg/dL Urine Glucose (UA) Negative (NEGATIVE) mg/dL Urine Ketones Negative (NEGATIVE) mg/dL Urine Occult Blood Moderate H (NEGATIVE) Urine Nitrite Negative (NEGATIVE) Urine Bilirubin Small H (NEGATIVE) Urine Urobilinogen 1.0 (0.2-1.0) E.U./dL Ur Leukocyte Esterase Negative (NEGATIVE) Urine RBC Not seen /HPF Urine WBC 0-5 /HPF Ur Epithelial Cells Many H /LPF Urine Bacteria Few (NONE TO FEW) /HPF 07/30/19 07/30/19 07/30/19 Range/Units 18:38 18:38 18:38 WBC (4.0-10.2) K/uL RBC (3.77-5.09) M/uL Hgb (11.7-15.5) g/dL Hct (34.0-46.0) % MCV (84.0-98.0) fL MCH (28.2-33.3) pg MCHC (31.7-36.0) g/dL RDW (11.2-14.1) % Plt Count (150-350) K/uL Neut % (Auto) (45.0-80.0) % Lymph % (Auto) (10.0-50.0) % Grady % (Auto) (2.0-14.0) % Eos % (Auto) (0.0-5.0) % Baso % (Auto) (0.0-2.0) % Neut # (Auto) (1.40-7.00) K/uL Lymph # (Auto) (0.50-3.50) K/uL Grady # (Auto) (0.00-1.00) K/uL Eos # (Auto) (0.00-0.50) K/uL Baso # (Auto) (0.00-0.20) K/uL PT 10.8 (9.5-12.0) SEC INR 1.0 APTT 32.7 H (21.0-31.3) SEC Sodium 141 (136-145) mmol/L Potassium 4.0 (3.5-5.1) mmol/L Chloride 104 (98-107) mmol/L Carbon Dioxide 26.4 (21.0-32.0) mmol/L BUN 18 (7-18) mg/dL Creatinine 1.13 (0.51-1.17) mg/dL Est Cr Clr Drug Dosing 53.90 mL/min Estimated GFR (MDRD) 50 mL/min Glucose 96 (74-106) mg/dL Lactic Acid 1.0 (0.4-2.0) mmol/L Uric Acid 5.0 (2.6-7.2) mg/dL Calcium 9.0 (8.5-10.1) mg/dL Magnesium 1.9 (1.8-2.4) mg/dL Iron (50-175) ug/dL TIBC (250-450) ug/dL % Saturation Ferritin (8-388) ng/mL Total Bilirubin 0.7 (0.2-1.0) mg/dL AST 10 L (15-37) U/L ALT 18 (12-78) U/L Alkaline Phosphatase 67 (46-116) IU/L Total Protein 8.0 (6.4-8.2) g/dL Albumin 3.6 (3.4-5.0) g/dL Amylase (25-115) U/L Lipase 153 (73-393) U/L Vitamin B12 (193-986) pg/mL HCG, Qual (NEGATIVE) Specimen Type Urine Color Urine Appearance Urine pH (5.0-9.0) Ur Specific [place] (1.005-1.030) Urine Protein (NEGATIVE) mg/dL Urine Glucose (UA) (NEGATIVE) mg/dL Urine Ketones (NEGATIVE) mg/dL Urine Occult Blood (NEGATIVE) Urine Nitrite (NEGATIVE) Urine Bilirubin (NEGATIVE) Urine Urobilinogen (0.2-1.0) E.U./dL Ur Leukocyte Esterase (NEGATIVE) Urine RBC /HPF Urine WBC /HPF Ur Epithelial Cells /LPF Urine Bacteria (NONE TO FEW) /HPF 07/30/19 07/31/19 07/31/19 Range/Units 18:38 07:10 07:10 WBC (4.0-10.2) K/uL RBC (3.77-5.09) M/uL Hgb (11.7-15.5) g/dL Hct (34.0-46.0) % MCV (84.0-98.0) fL MCH (28.2-33.3) pg MCHC (31.7-36.0) g/dL RDW (11.2-14.1) % Plt Count (150-350) K/uL Neut % (Auto) (45.0-80.0) % Lymph % (Auto) (10.0-50.0) % Grady % (Auto) (2.0-14.0) % Eos % (Auto) (0.0-5.0) % Baso % (Auto) (0.0-2.0) % Neut # (Auto) (1.40-7.00) K/uL Lymph # (Auto) (0.50-3.50) K/uL Grady # (Auto) (0.00-1.00) K/uL Eos # (Auto) (0.00-0.50) K/uL Baso # (Auto) (0.00-0.20) K/uL PT (9.5-12.0) SEC INR APTT (21.0-31.3) SEC Sodium 139 (136-145) mmol/L Potassium 3.9 (3.5-5.1) mmol/L Chloride 105 (98-107) mmol/L Carbon Dioxide 23.1 (21.0-32.0) mmol/L BUN 13 (7-18) mg/dL Creatinine 0.95 (0.51-1.17) mg/dL Est Cr Clr Drug Dosing 64.11 mL/min Estimated GFR (MDRD) > 60 mL/min Glucose 113 H (74-106) mg/dL Lactic Acid (0.4-2.0) mmol/L Uric Acid (2.6-7.2) mg/dL Calcium 8.1 L (8.5-10.1) mg/dL Magnesium (1.8-2.4) mg/dL Iron 14 L (50-175) ug/dL TIBC 232 L (250-450) ug/dL % Saturation [id number] Ferritin 211 (8-388) ng/mL Total Bilirubin 0.6 (0.2-1.0) mg/dL AST 8 L (15-37) U/L ALT 15 (12-78) U/L Alkaline Phosphatase 56 (46-116) IU/L Total Protein 6.8 (6.4-8.2) g/dL Albumin 2.9 L (3.4-5.0) g/dL Amylase (25-115) U/L Lipase (73-393) U/L Vitamin B12 351 (193-986) pg/mL HCG, Qual Negative (NEGATIVE) Specimen Type Urine Color Urine Appearance Urine pH (5.0-9.0) Ur Specific [place] (1.005-1.030) Urine Protein (NEGATIVE) mg/dL Urine Glucose (UA) (NEGATIVE) mg/dL Urine Ketones (NEGATIVE) mg/dL Urine Occult Blood (NEGATIVE) Urine Nitrite (NEGATIVE) Urine Bilirubin (NEGATIVE) Urine Urobilinogen (0.2-1.0) E.U./dL Ur Leukocyte Esterase (NEGATIVE) Urine RBC /HPF Urine WBC /HPF Ur Epithelial Cells /LPF Urine Bacteria (NONE TO FEW) /HPF 07/31/19 08/01/19 08/01/19 Range/Units 07:10 09:01 09:01 WBC 13.3 H 11.9 H (4.0-10.2) K/uL RBC 4.16 4.17 (3.77-5.09) M/uL Hgb 12.6 D 12.7 (11.7-15.5) g/dL Hct 38.8 38.8 (34.0-46.0) % MCV 93.3 93.0 (84.0-98.0) fL MCH 30.3 30.5 (28.2-33.3) pg MCHC 32.5 32.7 (31.7-36.0) g/dL RDW 13.4 13.1 (11.2-14.1) % Plt Count 175 171 (150-350) K/uL Neut % (Auto) 77.0 77.2 (45.0-80.0) % Lymph % (Auto) 10.9 11.4 (10.0-50.0) % Grady % (Auto) 10.8 9.9 (2.0-14.0) % Eos % (Auto) 1.1 1.3 (0.0-5.0) % Baso % (Auto) 0.2 0.2 (0.0-2.0) % Neut # (Auto) 10.26 H 9.16 H (1.40-7.00) K/uL Lymph # (Auto) 1.45 1.35 (0.50-3.50) K/uL Grady # (Auto) 1.44 H 1.17 H (0.00-1.00) K/uL Eos # (Auto) 0.14 0.15 (0.00-0.50) K/uL Baso # (Auto) 0.03 0.02 (0.00-0.20) K/uL PT (9.5-12.0) SEC INR APTT (21.0-31.3) SEC Sodium 140 (136-145) mmol/L Potassium 4.1 (3.5-5.1) mmol/L Chloride 106 (98-107) mmol/L Carbon Dioxide 25.3 (21.0-32.0) mmol/L BUN 7 (7-18) mg/dL Creatinine 0.87 (0.51-1.17) mg/dL Est Cr Clr Drug Dosing 70.39 mL/min Estimated GFR (MDRD) > 60 mL/min Glucose 104 (74-106) mg/dL Lactic Acid (0.4-2.0) mmol/L Uric Acid (2.6-7.2) mg/dL Calcium 8.2 L (8.5-10.1) mg/dL Magnesium (1.8-2.4) mg/dL Iron (50-175) ug/dL TIBC (250-450) ug/dL % Saturation Ferritin (8-388) ng/mL Total Bilirubin 0.5 (0.2-1.0) mg/dL AST 8 L (15-37) U/L ALT 14 (12-78) U/L Alkaline Phosphatase 58 (46-116) IU/L Total Protein 6.9 (6.4-8.2) g/dL Albumin 2.9 L (3.4-5.0) g/dL Amylase (25-115) U/L Lipase (73-393) U/L Vitamin B12 (193-986) pg/mL HCG, Qual (NEGATIVE) Specimen Type Urine Color Urine Appearance Urine pH (5.0-9.0) Ur Specific [place] (1.005-1.030) Urine Protein (NEGATIVE) mg/dL Urine Glucose (UA) (NEGATIVE) mg/dL Urine Ketones (NEGATIVE) mg/dL Urine Occult Blood (NEGATIVE) Urine Nitrite (NEGATIVE) Urine Bilirubin (NEGATIVE) Urine Urobilinogen (0.2-1.0) E.U./dL Ur Leukocyte Esterase (NEGATIVE) Urine RBC /HPF Urine WBC /HPF Ur Epithelial Cells /LPF Urine Bacteria (NONE TO FEW) /HPF JEREMY Results - Last 24 hrs: Microbiology 07/30/19 18:44 Aerobic Blood Culture - Preliminary Blood - Venous - Lab Draw NO GROWTH AFTER 2 DAYS Anaerobic Blood Culture - Preliminary NO GROWTH AFTER 2 DAYS 07/30/19 18:38 Aerobic Blood Culture - Preliminary Blood - Venous NO GROWTH AFTER 2 DAYS Anaerobic Blood Culture - Preliminary NO GROWTH AFTER 2 DAYS 07/30/19 18:30 Urine Culture - Final Urine, Clean Catch MIXED POSITIVE ELOISE DAY 2 07/31/19 16:15 Stool Occult Blood (JEREMY) - Final Stool / Feces 07/31/19 16:15 Stool Occult Blood (JEREMY) - Final Stool / Feces Hemoccult stools 2 were negative Med Orders - Current: Current Medications Acetaminophen (Tylenol) 650 mg PO Q4H PRN PRN Reason: Pain Last Admin: 08/01/19 16:39 Dose: 650 mg Al Hydroxide/Mg Hydroxide (Mag-Al Plus) 30 ml PO Q4H PRN PRN Reason: GI Upset Last Admin: 08/01/19 09:00 Dose: 30 ml Famotidine (Pepcid) 20 mg IVPUSH Q12H [facility] Last Admin: 08/01/19 17:35 Dose: 20 mg Hydromorphone HCl (Dilaudid) 0.5 mg IVPUSH Q4H PRN PRN Reason: Pain (severe 7-10) Last Admin: 08/01/19 15:41 Dose: 0.5 mg Potassium Chloride/Dextrose/Sod Cl (D5 1/2 Ns W/ 20 Meq/L Kcl) 1,000 mls @ 100 mls/hr IV ASDIRECTED [facility] Last Admin: 08/01/19 11:58 Dose: 100 mls/hr Ceftriaxone Sodium 1 gm/ (Sodium Chloride) 100 mls @ 200 mls/hr IV Q12H [facility] Last Admin: 08/01/19 19:24 Dose: 200 mls/hr Metronidazole 500 mg/ Premix 100 mls @ 100 mls/hr IV Q8H [facility] Last Infusion: 08/01/19 13:13 Dose: Infused Influenza Virus Vaccine (Pharmacy To Dose - Influenza Vaccine) 1 each IM ONETIME ONE Stop: 07/31/19 16:46 Ondansetron HCl (Zofran) 4 mg IVPUSH Q6H PRN PRN Reason: Nausea/Vomiting Last Admin: 08/01/19 15:52 Dose: 4 mg Pantoprazole Sodium (Protonix Iv) 40 mg IVPUSH Q12H [facility] Last Admin: 08/01/19 08:59 Dose: 40 mg Sodium Chloride (Saline Flush) 10 ml FLUSH ASDIRECTED PRN PRN Reason: Keep Vein Open Last Admin: 08/01/19 15:55 Dose: 10 ml Sodium Chloride (Saline Flush) 10 ml FLUSH Q12HR [facility] Last Admin: 08/01/19 19:29 Dose: 10 ml Temazepam (Restoril) 15 mg PO DAILY@2000 PRN PRN Reason: Insomnia Last Admin: 07/30/19 23:16 Dose: 15 mg Tramadol HCl (Ultram) 50 mg PO Q6H PRN PRN Reason: Pain (moderate 4-6) Last Admin: 08/01/19 16:38 Dose: 50 mg Discontinued Medications Acetaminophen (Tylenol) 650 mg PO NOW ONE Stop: 07/30/19 20:29 Last Admin: 07/30/19 20:48 Dose: 650 mg Famotidine (Pepcid) 40 mg IVPUSH ONETIME ONE Stop: 07/30/19 18:27 Last Admin: 07/30/19 19:18 Dose: 40 mg Hydromorphone HCl (Dilaudid) 1 mg IVPUSH ONETIME ONE Stop: 07/30/19 20:52 Last Admin: 07/30/19 21:02 Dose: 1 mg Ceftriaxone Sodium 1 gm/ (Sodium Chloride) 100 mls @ 200 mls/hr IV ONETIME ONE Stop: 07/30/19 18:55 Last Admin: 07/30/19 19:04 Dose: 200 mls/hr Lactated Ringer's (Ringers, Lactated) 1,000 mls @ 999 mls/hr IV .BOLUS ONE Stop: 07/30/19 19:26 Last Admin: 07/30/19 20:59 Dose: 999 mls/hr Metronidazole 500 mg/ Premix 100 mls @ 100 mls/hr IV ONETIME ONE Stop: 07/30/19 19:25 Last Admin: 07/30/19 19:42 Dose: 100 mls/hr Iopamidol (Isovue-300 (61%)) 100 ml IVPUSH ONETIME ONE Stop: 07/30/19 20:01 Last Admin: 07/30/19 20:30 Dose: 100 ml Iopamidol (Isovue-300 (61%)) Confirm Administered Dose 100 ml .ROUTE .STK-MED ONE Stop: 07/30/19 19:06 Ondansetron HCl (Zofran) 4 mg IVPUSH ONETIME ONE Stop: 07/30/19 18:27 Last Admin: 07/30/19 19:14 Dose: 4 mg Pantoprazole Sodium (Protonix Iv) 40 mg IVPUSH ONETIME ONE Stop: 07/30/19 18:27 Last Admin: 07/30/19 19:18 Dose: 40 mg - Exam Quality Assessment: Reports: DVT Prophylaxis. Denies: Supplemental Oxygen, Central Line/PICC, Urine Catheter, Skin Breakdown, Restraints General: Reports: Alert, Oriented, Cooperative, No Acute Distress HEENT: Reports: Pupils Equal, Pupils Reactive, EOMI, Mucous Membr. Moist/[place]. Denies: Scleral Icterus Neck: Reports: Supple, Trachea Midline, No JVD, No Thyromegaly. Denies: Lymphadenopathy Lungs: Reports: Clear to Auscultation, Normal Respiratory Effort. Denies: Rhonchi, Rub, Wheezing Cardiovascular: Reports: Regular Rate, Regular Rhythm, No Murmurs. Denies: Gallops, Rubs GI/Abdominal Exam: No Organomegaly, No Abnormal Bruit, Distended (Mild return of distention), Rebound (Mild to moderate diffuse peritoneal signs increased from this morning), Tender (Moderate diffuse palpation pain increased from this morning), Abnormal Bowel Sounds (Somewhat increased bowel sounds since this morning however not high-pitched in nature). No: Guarding, Rigid (Female) Exam: Deferred Rectal (Female) Exam: Deferred Back Exam: Reports: Normal Inspection, Full Range of Motion. Denies: CVA Tenderness (L), CVA Tenderness (R), Muscle Spasm Extremities: Normal Inspection, Normal Range of Motion, Non-Tender, No Pedal Edema, Normal Capillary Refill. No: Margarita's Sign Skin: Reports: Warm, Dry, Intact, Rash (Stable sternal rash). Denies: Ecchymosis Neurological: Reports: No New Focal Deficit Psy/Mental Status: Reports: Alert, Normal Affect, Normal Mood. Denies: Agitated , Hallucinations, Withdrawal Symptoms
== END 2019-08-01 20:43 | DRG 392 ==
LOC: LL.ED 18:14 → LL.MS 21:28
PROVIDERS: ADMIT Family Medicine; ATTEND Family Medicine
DX: K57.32 Diverticulitis of large intestine without perforation or abscess without bleeding (principal); K57.20 Diverticulitis of large intestine with perforation and abscess without bleeding; K21.9 Gastro-esophageal reflux disease without esophagitis; D50.9 Iron deficiency anemia, unspecified; L30.9 Dermatitis, unspecified; F17.210 Nicotine dependence, cigarettes, uncomplicated; D50.8 Other iron deficiency anemias; L30.8 Other specified dermatitis; E66.9 Obesity, unspecified; E83.51 Hypocalcemia; E88.09 Other disorders of plasma-protein metabolism, not elsewhere classified; K59.09 Other constipation; F41.9 Anxiety disorder, unspecified; Z88.5 Allergy status to narcotic agent; Z68.34 Body mass index [BMI] 34.0-34.9, adult
CPT/HCPCS: 36415; 74022; 74177; 80053; 81001; 82150; 82272; 82607; 82728; 83540; 83550; 83605; 83690; 83735; 84550; 84703; 85025; 85610; 85730; 87040; 87086; 96365; 96374; 99285-25; A9270-GY; C9113; J0696; J1170; J2405; J3480; J3490; J7050; J7120; Q9967

== ENCOUNTER 2020-05-08 16:05 | Observation (INO) | payer MEDICARE, MEDICAID ==
--- NOTE | 2020-05-08 16:16 | EDM.PDOC ---
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 With Assistance [RC] PFP Vital Signs [RC] PFP Chest 1V Frontal [CR] Stat Sodium Chloride 0.9% [Saline Flush] 10 ml FLUSH ASDIRECTED PRN Obtain Past Medical Record [OM.PC] Urgent Peripheral IV Insertion Adult [OM.PC] Stat Resuscitation Status Stat - Assessment/Plan Admission H&P: Please use this note as an admission H&P Last 24 Hours: My Active Orders 05/08/20 Breakfast Nothing per Oral Now Diet [DIET] 05/08/20 16:18 Cardiac Monitoring [RC] . DIRECTED EKG Documentation Completion [RC] ASDIRECTED Oxygen Therapy, ED [RC] PRN Peripheral IV Care [RC] . DIRECTED Pulse Oximetry [RC] CONTINUOUS Up With Assistance [RC] PFP Vital Signs [RC] PFP Chest 1V Frontal [CR] Stat Sodium Chloride 0.9% [Saline Flush] 10 ml FLUSH ASDIRECTED PRN Obtain Past Medical Record [OM.PC] Urgent Peripheral IV Insertion Adult [OM.PC] Stat Resuscitation Status Stat Assessment:: As above. Plan: As above. Extensive precautions were given to the patient, who is in agreement with the treatment plan. The patient's condition is stable enough for observation status and general supervision.
[2020-05-08] MEDS ORDERED: Ticagrelor 90 MG Tab PO ONE (16:18)
[2020-05-08] MEDS ORDERED: Famotidine 20 MG/2 ML SDV IVPUSH ONE (16:18)
[2020-05-08] MEDS ORDERED: Aspirin 81 MG Tab.Chew CHEW ONE (16:18)
[2020-05-08] MEDS: Sodium Chloride 0.9% 10 ML Syringe FLUSH PRN ×2 (16:25→22:22)
[2020-05-08 16:44] LABS: PTT,PARTIAL THROMBOPLSTIN TIME 27.2 SEC (24.5-32.8)
[2020-05-08] MEDS ORDERED: Temazepam 15 MG Cap PO PRN (17:26)
[2020-05-08] MEDS ORDERED: Acetaminophen 325 MG Tab PO PRN (17:26)
[2020-05-08] MEDS ORDERED: Sodium Chloride 0.9% 10 ML Syringe FLUSH PRN (17:26)
[2020-05-08] MEDS ORDERED: Magnesium Oxide 400 MG Tab PO ONE (17:28)
[2020-05-08] MEDS ORDERED: Albuterol 0.083% 2.5 MG/3 ML Neb Soln INH PRN (18:21)
[2020-05-08] MEDS ORDERED: Albuterol/Ipratropium 3.0-0.5 MG/3 ML Neb Soln NEB PRN (18:21)
--- NOTE | 2020-05-08 18:27 | PCM.SN.2 ---
- Free Text/Narrative Note: The patient is now experiencing some return nonspecific dyspnea, however no chest pressure or other anginal-type symptoms. Her intermittent sinus bradycardia has also increased with lowest pulse of 43. Repeat EKG at 18:09 hours showed moderate bradycardia with a heart rate of 49, improved NE interval 0.14 seconds with no delta waves, and no evidence of acute ischemic changes. Physical exam and vital signs are otherwise stable. Initiate subcutaneous Lovenox at cardiac cardiac dose with previous normal d-dimer, although this will be repeated in the a.m.. Repeat cardiac enzymes are scheduled for 21:00 hours this evening. Note some mild borderline pulmonary obstructive disease by today's chest x-ray with history of tobacco use. Initiate triple nebulizer treatments, which should also be beneficial for her bradycardia as above. Continue rule out [place] orders as before. Patient is still nothing by mouth.
[2020-05-08] MEDS: Albuterol/Ipratropium 3.0-0.5 MG/3 ML Neb Soln NEB SCH ×2 (19:12→19:20)
[2020-05-08] MEDS: Enoxaparin 100 MG/1 ML Syringe SUBCUT SCH (19:20)
[2020-05-08] MEDS: Budesonide 0.5 MG/2 ML Neb Susp NEB SCH (19:20)
[2020-05-09] MEDS: Albuterol/Ipratropium 3.0-0.5 MG/3 ML Neb Soln NEB SCH ×2 (01:35→08:19)
[2020-05-09] MEDS: Enoxaparin 100 MG/1 ML Syringe SUBCUT SCH (05:41)
[2020-05-09 07:38] LABS: HEMOGLOBIN A1C 5.1 % (4.3-5.7)
[2020-05-09] MEDS ORDERED: Magnesium Oxide 400 MG Tab PO SCH (08:00)
[2020-05-09] MEDS: Budesonide 0.5 MG/2 ML Neb Susp NEB SCH (08:21)
--- NOTE | 2020-05-09 09:55 | PCM.DCSUM1 ---
Discharge Summary - Hospital Course HPI Initial Comments: See emergency room note/admission H&P Brief History: See emergency room note/admission H&P Diagnosis: Stroke: No Modified Gilbert Scale: No Symptoms at All Modified Gilbert Scale Score: 0 - Discharge Data Discharge Date: 05/09/20 Discharge Disposition: Home, Self-Care 01 Condition: Good - Referral to Home Health Primary Care Physician: PCP None - Discharge Diagnosis/Problem(s) (1) Chest pain SNOMED Code(s): 35012217 ICD Code: R07.9 - CHEST PAIN, UNSPECIFIED Status: Acute Priority: High Current Visit: Yes Problem Details: Negative workup for acute AR. Various therapeutic options were discussed with the patient, who has decided to schedule recommended Cardiolite stress test on an outpatient basis through her new regular provider. Activity precautions, etc. were extensively discussed. Chest pain protocol initiated immediately upon patient's arrival to this facility. High-dose IV Pepcid was given as GI prophylaxis with resolution symptoms prior to placement in observation status. Further cardiology consultation depending on her clinical course and per the discretion of her regular provider. She does not need a work excuse. Qualifiers: Chest pain type: precordial pain Qualified Code(s): R07.2 - Precordial pain (2) Bradycardia SNOMED Code(s): 21338651 ICD Code: R00.1 - BRADYCARDIA, UNSPECIFIED Status: Acute Priority: High Current Visit: Yes Onset Date: 05/09/20 Problem Details: Moderate bradycardia of unknown etiology, however note possible anginal-type symptoms prior to this hospitalization. Some occasional borderline tachycardia with nebulizer therapy with bradycardia nonsymptomatic at this time. Possibility of inferior wall cardiac ischemia based on clinical history with cartilage stress test recommended as above. No other cardiac arrhythmia noted with consideration of event monitor on an outpatient basis. (3) Hypomagnesemia SNOMED Code(s): 722103031 ICD Code: E83.42 - HYPOMAGNESEMIA Status: Acute Priority: Medium Current Visit: Yes Onset Date: 05/08/20 Problem Details: Initiated magnesium oxide therapy on admission with close observation by her regular providers after discharge as per discharge instructions. (4) Obesity (BMI 35.0-39.9 without comorbidity) SNOMED Code(s): 418250717, 416684810 ICD Code: E66.9 - OBESITY, UNSPECIFIED Status: Chronic Priority: Medium Current Visit: Yes Problem Details: Weight loss in moderation advisable with low-fat, low-cholesterol, diverticulosis dietary information to be provided at discharge. Fasting lipid profile did show some mild dyslipidemia with normal glycosylated hemoglobin of 5.1% on 05/09/20. (5) Peptic reflux disease SNOMED Code(s): 040914886 ICD Code: K21.9 - GASTRO-ESOPHAGEAL REFLUX DISEASE WITHOUT ESOPHAGITIS Status: Chronic Priority: Medium Current Visit: Yes Problem Details: Note high-dose IV Pepcid given in the emergency room with excellent results and resolved symptoms at time of admission. Consider EGD, etc. once her cardiac status has been clarified. Pepcid to be continued at time of discharge with stool specimen unable to be obtained for Hemoccult and H. pylori antigen. (6) Iron deficiency anemia SNOMED Code(s): 26661760 ICD Code: D50.9 - IRON DEFICIENCY ANEMIA, UNSPECIFIED Status: Chronic Priority: Medium Current Visit: Yes Onset Date: 07/31/19 Problem Details: Iron studies on 07/31/19 confirmed persistent iron deficiency with no significant anemia at this time. Per the patient's request iron studies were repeated on 05/09 with only mild decreased iron level with normal TIBC and ferritin level with no current anemia. Observe for now. Delay further iron supplementation at this time secondary to possible cardiac symptoms as above. Vitamin B 12 level on 07/31/19 was normal. Qualifiers: Iron deficiency anemia type: other iron deficiency Qualified Code(s): D50.8 - Other iron deficiency anemias (7) Tobacco abuse counseling SNOMED Code(s): 432491644, 380172475, 735148046 ICD Code: Z71.6 - TOBACCO ABUSE COUNSELING Status: Chronic Priority: Medium Current Visit: Yes Problem Details: Tobacco cessation information provided at discharge with tobacco cessation strongly encouraged. (8) Mixed anxiety depressive disorder SNOMED Code(s): 034493275 ICD Code: F41.8 - OTHER SPECIFIED ANXIETY DISORDERS Status: Chronic Priority: Medium Current Visit: Yes Problem Details: Emotional support provided. Continue to observe closely by her regular providers. (9) COPD (chronic obstructive pulmonary disease) SNOMED Code(s): 60318448 ICD Code: J44.9 - CHRONIC OBSTRUCTIVE PULMONARY DISEASE, UNSPECIFIED Status: Chronic Priority: Medium Current Visit: Yes Onset Date: ~05/08/20 Problem Details: Mild pulmonary obstructive disease by chest x-ray with patient showing resolution of her nonspecific dyspnea after initiation of nebulizer treatments. No clinical evidence of DVT or PE with normal d-dimers 2 during this hospitalization. She has apparently previously used inhalers, however she was once again counseled on the proper use of these inhalers. Reinitiate Proventil inhaler on a when necessary basis for now. PFTs by regular provider recommended. Tobacco cessation also once again encouraged. Qualifiers: COPD type: emphysema Emphysema type: panlobular Qualified Code(s): J43.1 - Panlobular emphysema (10) Dyslipidemia SNOMED Code(s): 614723646 ICD Code: E78.5 - HYPERLIPIDEMIA, UNSPECIFIED Status: Acute Priority: Medium Current Visit: Yes Onset Date: 05/09/20 Problem Details: Dietary changes and weight loss for now. Consider statin, etc. therapy depending on her clinical course, cardiac workup, etc. as above. (11) Hypoalbuminemia SNOMED Code(s): 291848332 ICD Code: E88.09 - H DISORDERS OF PLASMA-PROTEIN METABOLISM, NEC Status: Chronic Priority: Medium Current Visit: No Onset Date: 07/31/19 Problem Details: Normal on admission with mildly decreased albumin levels on 05/09/20. Observe for now. (12) Osteoarthritis SNOMED Code(s): 033045901 ICD Code: M19.90 - UNSPECIFIED OSTEOARTHRITIS, UNSPECIFIED SITE Status: Chronic Priority: Medium Current Visit: Yes Problem Details: Stable chronic low back pain. Further treatment and workup by regular provider as needed Qualifiers: Osteoarthritis location: multiple joints Osteoarthritis type: primary Qualified Code(s): M89.49 - Other hypertrophic osteoarthropathy, multiple sites - Patient Summary/Data Operative Procedure(s) Performed: None Complications: None Consults: None Labs Pending at D/C: None Recommended Follow-up Testing/Procedures: As per discharge instructions Planned Operative Procedure(s) after DC: None Hospital Course: Patient was placed in observation status on telemetry with negative workup for acute AR as above. Secondary to some nonspecific dyspnea shortly after admission she was given subcutaneous Lovenox at the cardiac prophylactic dose with no evidence of DVT, PE, etc. as above. D-dimer did remain negative throughout this hospitalization. The patient was also started on triple nebulizer treatments with additional 4 times a day DuoNeb treatments with excellent results. Mixed picture of patient's symptoms, including probable GERD and COPD components, however note bradycardia, which does warrant further cardiac evaluation. - Patient Instructions Diet: Heart Healthy Diet (Diverticulosis) Activity: No Strenuous Activities (50% maximum exercise restriction with injury/fall precautions, etc. secondary to your low heart rate and blood thinner during this hospitalization) Driving: May Drive Today Showering/Bathing: May Shower Notify Provider of: Fever, Increased Pain, Nausea and/or Vomiting Other/Special Instructions: 1. Followup with your new regular provider in 5-7 days as directed for reevaluation with recommended repeat EKG and magnesium level. Bring these discharge instructions with you to that visit. 2. Discuss with your regular provider at that time recommended scheduling of an outpatient Cardiolite stress test ANDERSON with possible future event monitor and lung function tests/PFTs. 3. Stop all tobacco use ANDERSON as directed/per provided information and consider contacting Quit LIne, etc.. 4. Consider repeating TIBC panel and ferritin level in about one month with recommended repeat fasting lipid profile, etc. in about 3 months. 5. Immediately after this visit verify that your cellular telephone's voicemail has been activated and is empty. Also verify that your home telephone's answering machine is operating properly and has space to receive messages. Note that it is sometimes necessary for us to be able to contact you at a later date to discuss your medical care. 6. Please remember that we are ALWAYS here for you and want to answer any questions you may have. Feel free to call the hospital any time and we call you back ANDERSON. SYMPTOMS TO LOOK OUT FOR: You have been hospitalized for your heart disease and should look out for the following symptoms after discharge: 1. Make absolutely certain that you completely understand the reasons you are taking any of your new and/or old medications and/or supplements as discussed with you by the nurse at time of discharge. This includes possible side effects versus interactions between your medications and/or supplements. Don't be afraid to take extra time to ask any questions or express any concerns, because that is what we are here for. It is very important to us that you understand your care. 2. Notify this facility, telephone number [phone], and/or your regular provider ANDERSON if you experience any of the following symptoms: a. Sudden chest pressure or pain especially with radiation to the neck, jaws, arms, mid back, etc. especially if these are associated with nausea, cold sweats, dizziness, racing heart, weakness, near fainting, etc. b. Any shortness of breath or decreased exercise tolerance that has changed since your hospital discharge and is not normal for you. c. Any persistent heartburn type symptoms that is not normal for you and is not relieved by any of your discharge medications or supplements. d. Any progressive weight gain especially more than 5 pounds of weight gain prior to your scheduled appointment with your regular provider. e. Any racing heart, dizziness, etc. not associated with the other symptoms as above. f. Any persistent fever equal to or greater than 100.5 degrees, which does not respond to recommended doses of Tylenol, ibuprofen, Aleve, or other previously prescribed fever medications - Discharge Plan *PRESCRIPTION DRUG MONITORING PROGRAM REVIEWED*: Not Applicable *COPY OF PRESCRIPTION DRUG MONITORING REPORT IN PATIENT JOSSELINE: Not Applicable Prescriptions/Med Rec: Albuterol Sulfate [Albuterol Sulfate Hfa] 8.5 gm IH Q4HR PRN #1 [id number].[email or web address] PRN Reason: Dyspnea Magnesium Oxide 400 mg PO DAILY #30 tablet Famotidine [Pepcid] 20 mg PO BID #60 tab Home Medications: Home Meds Acetaminophen [Tylenol] 650 mg PO Q4H PRN tablet 05/09/20 [Rx] Albuterol Sulfate [Albuterol Sulfate Hfa] 8.5 gm IH Q4HR PRN #1 [id number].[email or web address] 05/09/20 [Rx] Famotidine [Pepcid] 20 mg PO BID #60 tab 05/09/20 [Rx] Magnesium Oxide 400 mg PO DAILY #30 tablet 05/09/20 [Rx] Oxygen Therapy Mode: Room Air Patient Handouts: Steps to Quit Smoking, [id number], Health Risks of Smoking, Heart-Healthy Eating Plan, [id number], Bradycardia, Adult, Chronic Obstructive Pulmonary Disease, Clzd-[id number], Nonspecific Chest Pain, Adult, Pgro-el-Ctdb, Gastroesophageal Reflux Disease, Adult, [id number], Diverticulosis Forms: ED Department Discharge Referrals: PCP,None [Primary Care Provider] - - Discharge Summary/Plan Comment DC Time >30 min.: Yes (Coordination of care ) Discharge Summary/Plan Comment: As above. Extensive precautions were given to the patient, who is in agreement with the treatment plan. See Patient Instructions for further treatment and plan. - General Info Date of Service: 05/09/20 Admission Dx/Problem (Free Text: 1. Chest pain 2. Bradycardia Functional Status: Reports: Pain Controlled, Tolerating Diet, Ambulating, Urinating, Incentive Spirometry. Denies: New Symptoms Numeric/FACES Score: 0 - Review of Systems General: Denies: Fever, Weakness, Fatigue, Malaise, Chills, Night Sweats, Appetite (Good) HEENT: Reports: Glasses. Denies: Ear Pain, Eye Pain, Headaches, Post Nasal Drip, Sinus Congestion, Sore Throat, Rhinitis, Visual Changes Pulmonary: Reports: Cough (Minimal), Sputum (Minimal clear productive). Denies: Shortness of Breath (Resolved), Pleuritic Chest Pain, Hemoptysis, Wheezing Cardiovascular: Reports: No Symptoms. Denies: Chest Pain, Palpitations, Dyspnea on Exertion, Orthopnea, PND, Edema, Lightheadedness Gastrointestinal: Reports: No Symptoms, Other (No bowel movement during this brief hospitalization). Denies: Abdominal Pain, Constipation, Decreased Appetite, Diarrhea, Difficulty Swallowing, Flatus, Hematochezia, Melena, Nausea, Vomiting Genitourinary: Reports: No Symptoms. Denies: Dysuria, Frequency, Burning, Pain, Urgency, Incontinence, Hematuria, Retention, Flank Pain Musculoskeletal: Reports: No Symptoms. Denies: Neck Pain, Shoulder Pain, Arm Pain, Back Pain, Leg Pain Skin: Reports: No Symptoms. Denies: Diaphoresis, Bruising Neurological: Reports: No Symptoms. Denies: Confusion, Dizziness, Headache, Numbness, Paresthesia, Tingling, Weakness Psychiatric: Reports: No Symptoms. Denies: Confusion, Depression, Anxiety, Agitation, Cravings, Hallucinations - Patient Data Vitals - Most Recent: Last Vital Signs Temp 36.1 C 05/09/20 08:00 Pulse 64 05/09/20 08:00 Resp 16 05/09/20 08:00 BP 116/60 05/09/20 08:00 Pulse Ox 99 05/09/20 08:00 Vital Signs - 24 hr 05/08/20 05/08/20 05/08/20 16:10 16:18 17:26 Temperature [ 36.7 C 36.9 C Temporal] Pulse, 64 58 L 96 Peripheral [ Left Pulse Oximetry] Respiratory 18 8 L 24 H Rate Blood Pressure 94/77 116/69 119/64 [Left Upper Arm ] O2 Sat by Pulse 98 98 96 Oximetry 05/08/20 05/08/20 05/09/20 19:26 21:30 01:38 Temperature [ 36.6 C 36.2 C 36.6 C Temporal] Pulse, 50 L 52 L 65 Peripheral [ Left Pulse Oximetry] Respiratory 16 16 16 Rate Blood Pressure 111/58 L 111/51 L 106/44 L [Left Upper Arm ] O2 Sat by Pulse 99 100 96 Oximetry 05/09/20 05/09/20 05:40 08:00 Temperature [ 36.3 C 36.1 C Temporal] Pulse, 64 64 Peripheral [ Left Pulse Oximetry] Respiratory 12 16 Rate Blood Pressure 111/55 L 116/60 [Left Upper Arm ] O2 Sat by Pulse 98 99 Oximetry Weight - Most Recent: 101.741 kg I&O - Last 24 hours: Intake & Output 05/08/20 05/09/20 05/09/20 22:59 06:59 14:59 Intake Total 1640 60 Output Total 1100 100 300 Balance 540 -40 -300 Imaging Impressions - Last 24 hrs: cardiac monitor shows intermittent moderate bradycardia with lowest heart rate of 43 with occasional borderline sinus tachycardia in the low 100s with nebulizer therapy. Average heart rates in the middle 50s to low 60s with no other ectopy or arrhythmia. Chest x-ray, portable, on 05/08/20 shows evidence of a borderline pulmonary obstructive disease with no pulmonary infiltrates, pneumothorax, cardiomegaly, CHF, etc. Mild prominence of the proximal aortic arch with aortic valve calcification. Lab Results - Last 24 hrs: Laboratory Results - last 24 hr 05/08/20 05/08/20 05/08/20 Range/Units 16:25 16:25 16:25 WBC 6.7 (4.0-10.2) K/uL RBC 4.86 (3.77-5.09) M/uL Hgb 14.7 D (11.7-15.5) g/dL Hct 44.3 (34.0-46.0) % MCV 91.2 (84.0-98.0) fL MCH 30.2 (28.2-33.3) pg MCHC 33.2 (31.7-36.0) g/dL RDW 14.0 (11.2-14.1) % Plt Count 232 (150-350) K/uL Neut % (Auto) 59.2 (45.0-80.0) % Lymph % (Auto) 24.8 (10.0-50.0) % Towner % (Auto) 11.4 (2.0-14.0) % Eos % (Auto) 3.9 (0.0-5.0) % Baso % (Auto) 0.7 (0.0-2.0) % Neut # (Auto) 3.96 (1.40-7.00) K/uL Lymph # (Auto) 1.66 (0.50-3.50) K/uL Towner # (Auto) 0.76 (0.00-1.00) K/uL Eos # (Auto) 0.26 (0.00-0.50) K/uL Baso # (Auto) 0.05 (0.00-0.20) K/uL PT 9.8 (9.5-12.0) SEC INR 1.0 APTT 27.2 (24.5-32.8) SEC D-Dimer, Quantitative 136 (0-400) ng/mL Sodium (136-145) mmol/L Potassium (3.5-5.1) mmol/L Chloride (98-107) mmol/L Carbon Dioxide (21.0-32.0) mmol/L BUN (7-18) mg/dL Creatinine (0.51-1.17) mg/dL Est Cr Clr Drug Dosing mL/min Estimated GFR (MDRD) mL/min Glucose (74-106) mg/dL Hemoglobin A1c (4.3-5.7) % Lactic Acid (0.4-2.0) mmol/L Uric Acid (2.6-7.2) mg/dL Calcium (8.5-10.1) mg/dL Magnesium (1.8-2.4) mg/dL Iron (50-175) ug/dL TIBC (250-450) ug/dL % Saturation Ferritin (8-388) ng/mL Total Bilirubin (0.2-1.0) mg/dL AST (15-37) U/L ALT (12-78) U/L Alkaline Phosphatase (46-116) IU/L Creatine Kinase (26-308) U/L Creatine Kinase Index (0.0-2.5) % CK-MB (CK-2) (0.00-3.60) ng/mL Troponin I (0.000-0.056) ng/mL NT-Pro-B Natriuret Pep (0-125) pg/mL Total Protein (6.4-8.2) g/dL Albumin (3.4-5.0) g/dL Triglycerides (30-150) mg/dL Cholesterol (100-200) mg/dL LDL Cholesterol, Calc (0-100) mg/dL HDL Cholesterol (40-60) mg/dL TSH, Ultra Sensitive (0.358-3.740) mIU/mL 05/08/20 05/08/20 05/08/20 Range/Units 16:25 16:25 20:44 WBC (4.0-10.2) K/uL RBC (3.77-5.09) M/uL Hgb (11.7-15.5) g/dL Hct (34.0-46.0) % MCV (84.0-98.0) fL MCH (28.2-33.3) pg MCHC (31.7-36.0) g/dL RDW (11.2-14.1) % Plt Count (150-350) K/uL Neut % (Auto) (45.0-80.0) % Lymph % (Auto) (10.0-50.0) % Towner % (Auto) (2.0-14.0) % Eos % (Auto) (0.0-5.0) % Baso % (Auto) (0.0-2.0) % Neut # (Auto) (1.40-7.00) K/uL Lymph # (Auto) (0.50-3.50) K/uL Towner # (Auto) (0.00-1.00) K/uL Eos # (Auto) (0.00-0.50) K/uL Baso # (Auto) (0.00-0.20) K/uL PT (9.5-12.0) SEC INR APTT (24.5-32.8) SEC D-Dimer, Quantitative (0-400) ng/mL Sodium 139 (136-145) mmol/L Potassium 4.0 (3.5-5.1) mmol/L Chloride 106 (98-107) mmol/L Carbon Dioxide 21.5 (21.0-32.0) mmol/L BUN 17 (7-18) mg/dL Creatinine 0.99 (0.51-1.17) mg/dL Est Cr Clr Drug Dosing 63.17 mL/min Estimated GFR (MDRD) 58 mL/min Glucose 105 (74-106) mg/dL Hemoglobin A1c (4.3-5.7) % Lactic Acid 1.3 (0.4-2.0) mmol/L Uric Acid 6.1 (2.6-7.2) mg/dL Calcium 8.7 (8.5-10.1) mg/dL Magnesium 1.7 L (1.8-2.4) mg/dL Iron (50-175) ug/dL TIBC (250-450) ug/dL % Saturation Ferritin (8-388) ng/mL Total Bilirubin 0.4 (0.2-1.0) mg/dL AST 14 L (15-37) U/L ALT 18 (12-78) U/L Alkaline Phosphatase 80 (46-116) IU/L Creatine Kinase 64 63 (26-308) U/L Creatine Kinase Index 1.3 0.8 (0.0-2.5) % CK-MB (CK-2) 0.80 0.50 (0.00-3.60) ng/mL Troponin I 0.000 0.000 (0.000-0.056) ng/mL NT-Pro-B Natriuret Pep 91 (0-125) pg/mL Total Protein 7.2 (6.4-8.2) g/dL Albumin 3.4 (3.4-5.0) g/dL Triglycerides (30-150) mg/dL Cholesterol (100-200) mg/dL LDL Cholesterol, Calc (0-100) mg/dL HDL Cholesterol (40-60) mg/dL TSH, Ultra Sensitive 0.849 (0.358-3.740) mIU/mL 05/09/20 05/09/20 05/09/20 Range/Units 07:20 07: 07:20 WBC 7.2 (4.0-10.2) K/uL RBC 4.62 (3.77-5.09) M/uL Hgb 14.0 (11.7-15.5) g/dL Hct 42.7 (34.0-46.0) % MCV 92.4 (84.0-98.0) fL MCH 30.3 (28.2-33.3) pg MCHC 32.8 (31.7-36.0) g/dL RDW 14.2 H (11.2-14.1) % Plt Count 210 (150-350) K/uL Neut % (Auto) 53.7 (45.0-80.0) % Lymph % (Auto) 31.0 (10.0-50.0) % Towner % (Auto) 10.3 (2.0-14.0) % Eos % (Auto) 4.2 (0.0-5.0) % Baso % (Auto) 0.8 (0.0-2.0) % Neut # (Auto) 3.85 (1.40-7.00) K/uL Lymph # (Auto) 2.22 (0.50-3.50) K/uL Towner # (Auto) 0.74 (0.00-1.00) K/uL Eos # (Auto) 0.30 (0.00-0.50) K/uL Baso # (Auto) 0.06 (0.00-0.20) K/uL PT (9.5-12.0) SEC INR APTT (24.5-32.8) SEC D-Dimer, Quantitative (0-400) ng/mL Sodium 144 (136-145) mmol/L Potassium 4.2 (3.5-5.1) mmol/L Chloride 111 H (98-107) mmol/L Carbon Dioxide 23.1 (21.0-32.0) mmol/L BUN 17 (7-18) mg/dL Creatinine 0.98 (0.51-1.17) mg/dL Est Cr Clr Drug Dosing 63.82 mL/min Estimated GFR (MDRD) 59 mL/min Glucose 99 (74-106) mg/dL Hemoglobin A1c 5.1 (4.3-5.7) % Lactic Acid (0.4-2.0) mmol/L Uric Acid (2.6-7.2) mg/dL Calcium 8.7 (8.5-10.1) mg/dL Magnesium (1.8-2.4) mg/dL Iron (50-175) ug/dL TIBC (250-450) ug/dL % Saturation Ferritin (8-388) ng/mL Total Bilirubin 0.3 (0.2-1.0) mg/dL AST 11 L (15-37) U/L ALT 18 (12-78) U/L Alkaline Phosphatase 70 (46-116) IU/L Creatine Kinase 45 (26-308) U/L Creatine Kinase Index 0.9 (0.0-2.5) % CK-MB (CK-2) 0.40 (0.00-3.60) ng/mL Troponin I 0.000 (0.000-0.056) ng/mL NT-Pro-B Natriuret Pep (0-125) pg/mL Total Protein 6.6 (6.4-8.2) g/dL Albumin 3.2 L (3.4-5.0) g/dL Triglycerides 90 (30-150) mg/dL Cholesterol 178 (100-200) mg/dL LDL Cholesterol, Calc 125 H (0-100) mg/dL HDL Cholesterol 35 L (40-60) mg/dL TSH, Ultra Sensitive (0.358-3.740) mIU/mL 05/09/20 05/09/20 Range/Units 07:20 07:20 WBC (4.0-10.2) K/uL RBC (3.77-5.09) M/uL Hgb (11.7-15.5) g/dL Hct (34.0-46.0) % MCV (84.0-98.0) fL MCH (28.2-33.3) pg MCHC (31.7-36.0) g/dL RDW (11.2-14.1) % Plt Count (150-350) K/uL Neut % (Auto) (45.0-80.0) % Lymph % (Auto) (10.0-50.0) % Towner % (Auto) (2.0-14.0) % Eos % (Auto) (0.0-5.0) % Baso % (Auto) (0.0-2.0) % Neut # (Auto) (1.40-7.00) K/uL Lymph # (Auto) (0.50-3.50) K/uL Towner # (Auto) (0.00-1.00) K/uL Eos # (Auto) (0.00-0.50) K/uL Baso # (Auto) (0.00-0.20) K/uL PT (9.5-12.0) SEC INR APTT (24.5-32.8) SEC D-Dimer, Quantitative < 100 (0-400) ng/mL Sodium (136-145) mmol/L Potassium (3.5-5.1) mmol/L Chloride (98-107) mmol/L Carbon Dioxide (21.0-32.0) mmol/L BUN (7-18) mg/dL Creatinine (0.51-1.17) mg/dL Est Cr Clr Drug Dosing mL/min Estimated GFR (MDRD) mL/min Glucose (74-106) mg/dL Hemoglobin A1c (4.3-5.7) % Lactic Acid (0.4-2.0) mmol/L Uric Acid (2.6-7.2) mg/dL Calcium (8.5-10.1) mg/dL Magnesium (1.8-2.4) mg/dL Iron 47 L (50-175) ug/dL TIBC 293 (250-450) ug/dL % Saturation 16.80178 Ferritin 36 (8-388) ng/mL Total Bilirubin (0.2-1.0) mg/dL AST (15-37) U/L ALT (12-78) U/L Alkaline Phosphatase (46-116) IU/L Creatine Kinase (26-308) U/L Creatine Kinase Index (0.0-2.5) % CK-MB (CK-2) (0.00-3.60) ng/mL Troponin I (0.000-0.056) ng/mL NT-Pro-B Natriuret Pep (0-125) pg/mL Total Protein (6.4-8.2) g/dL Albumin (3.4-5.0) g/dL Triglycerides (30-150) mg/dL Cholesterol (100-200) mg/dL LDL Cholesterol, Calc (0-100) mg/dL HDL Cholesterol (40-60) mg/dL TSH, Ultra Sensitive (0.358-3.740) mIU/mL Laboratory Tests 05/08/20 05/08/20 05/08/20 Range/Units 16:25 16:25 16:25 WBC 6.7 (4.0-10.2) K/uL RBC 4.86 (3.77-5.09) M/uL Hgb 14.7 D (11.7-15.5) g/dL Hct 44.3 (34.0-46.0) % MCV 91.2 (84.0-98.0) fL MCH 30.2 (28.2-33.3) pg MCHC 33.2 (31.7-36.0) g/dL RDW 14.0 (11.2-14.1) % Plt Count 232 (150-350) K/uL Neut % (Auto) 59.2 (45.0-80.0) % Lymph % (Auto) 24.8 (10.0-50.0) % Towner % (Auto) 11.4 (2.0-14.0) % Eos % (Auto) 3.9 (0.0-5.0) % Baso % (Auto) 0.7 (0.0-2.0) % Neut # (Auto) 3.96 (1.40-7.00) K/uL Lymph # (Auto) 1.66 (0.50-3.50) K/uL Towner # (Auto) 0.76 (0.00-1.00) K/uL Eos # (Auto) 0.26 (0.00-0.50) K/uL Baso # (Auto) 0.05 (0.00-0.20) K/uL PT 9.8 (9.5-12.0) SEC INR 1.0 APTT 27.2 (24.5-32.8) SEC D-Dimer, Quantitative 136 (0-400) ng/mL Sodium (136-145) mmol/L Potassium (3.5-5.1) mmol/L Chloride (98-107) mmol/L Carbon Dioxide (21.0-32.0) mmol/L BUN (7-18) mg/dL Creatinine (0.51-1.17) mg/dL Est Cr Clr Drug Dosing mL/min Estimated GFR (MDRD) mL/min Glucose (74-106) mg/dL Hemoglobin A1c (4.3-5.7) % Lactic Acid (0.4-2.0) mmol/L Uric Acid (2.6-7.2) mg/dL Calcium (8.5-10.1) mg/dL Magnesium (1.8-2.4) mg/dL Iron (50-175) ug/dL TIBC (250-450) ug/dL % Saturation Ferritin (8-388) ng/mL Total Bilirubin (0.2-1.0) mg/dL AST (15-37) U/L ALT (12-78) U/L Alkaline Phosphatase (46-116) IU/L Creatine Kinase (26-308) U/L Creatine Kinase Index (0.0-2.5) % CK-MB (CK-2) (0.00-3.60) ng/mL Troponin I (0.000-0.056) ng/mL NT-Pro-B Natriuret Pep (0-125) pg/mL Total Protein (6.4-8.2) g/dL Albumin (3.4-5.0) g/dL Triglycerides (30-150) mg/dL Cholesterol (100-200) mg/dL LDL Cholesterol, Calc (0-100) mg/dL HDL Cholesterol (40-60) mg/dL TSH, Ultra Sensitive (0.358-3.740) mIU/mL 05/08/20 05/08/20 05/08/20 Range/Units 16:25 16:25 20:44 WBC (4.0-10.2) K/uL RBC (3.77-5.09) M/uL Hgb (11.7-15.5) g/dL Hct (34.0-46.0) % MCV (84.0-98.0) fL MCH (28.2-33.3) pg MCHC (31.7-36.0) g/dL RDW (11.2-14.1) % Plt Count (150-350) K/uL Neut % (Auto) (45.0-80.0) % Lymph % (Auto) (10.0-50.0) % Towner % (Auto) (2.0-14.0) % Eos % (Auto) (0.0-5.0) % Baso % (Auto) (0.0-2.0) % Neut # (Auto) (1.40-7.00) K/uL Lymph # (Auto) (0.50-3.50) K/uL Towner # (Auto) (0.00-1.00) K/uL Eos # (Auto) (0.00-0.50) K/uL Baso # (Auto) (0.00-0.20) K/uL PT (9.5-12.0) SEC INR APTT (24.5-32.8) SEC D-Dimer, Quantitative (0-400) ng/mL Sodium 139 (136-145) mmol/L Potassium 4.0 (3.5-5.1) mmol/L Chloride 106 (98-107) mmol/L Carbon Dioxide 21.5 (21.0-32.0) mmol/L BUN 17 (7-18) mg/dL Creatinine 0.99 (0.51-1.17) mg/dL Est Cr Clr Drug Dosing 63.17 mL/min Estimated GFR (MDRD) 58 mL/min Glucose 105 (74-106) mg/dL Hemoglobin A1c (4.3-5.7) % Lactic Acid 1.3 (0.4-2.0) mmol/L Uric Acid 6.1 (2.6-7.2) mg/dL Calcium 8.7 (8.5-10.1) mg/dL Magnesium 1.7 L (1.8-2.4) mg/dL Iron (50-175) ug/dL TIBC (250-450) ug/dL % Saturation Ferritin (8-388) ng/mL Total Bilirubin 0.4 (0.2-1.0) mg/dL AST 14 L (15-37) U/L ALT 18 (12-78) U/L Alkaline Phosphatase 80 (46-116) IU/L Creatine Kinase 64 63 (26-308) U/L Creatine Kinase Index 1.3 0.8 (0.0-2.5) % CK-MB (CK-2) 0.80 0.50 (0.00-3.60) ng/mL Troponin I 0.000 0.000 (0.000-0.056) ng/mL NT-Pro-B Natriuret Pep 91 (0-125) pg/mL Total Protein 7.2 (6.4-8.2) g/dL Albumin 3.4 (3.4-5.0) g/dL Triglycerides (30-150) mg/dL Cholesterol (100-200) mg/dL LDL Cholesterol, Calc (0-100) mg/dL HDL Cholesterol (40-60) mg/dL TSH, Ultra Sensitive 0.849 (0.358-3.740) mIU/mL 05/09/20 05/09/20 05/09/20 Range/Units 07:20 07: 07: WBC 7.2 (4.0-10.2) K/uL RBC 4.62 (3.77-5.09) M/uL Hgb 14.0 (11.7-15.5) g/dL Hct 42.7 (34.0-46.0) % MCV 92.4 (84.0-98.0) fL MCH 30.3 (28.2-33.3) pg MCHC 32.8 (31.7-36.0) g/dL RDW 14.2 H (11.2-14.1) % Plt Count 210 (150-350) K/uL Neut % (Auto) 53.7 (45.0-80.0) % Lymph % (Auto) 31.0 (10.0-50.0) % [place] % (Auto) 10.3 (2.0-14.0) % Eos % (Auto) 4.2 (0.0-5.0) % Baso % (Auto) 0.8 (0.0-2.0) % Neut # (Auto) 3.85 (1.40-7.00) K/uL Lymph # (Auto) 2.22 (0.50-3.50) K/uL [place] # (Auto) 0.74 (0.00-1.00) K/uL Eos # (Auto) 0.30 (0.00-0.50) K/uL Baso # (Auto) 0.06 (0.00-0.20) K/uL PT (9.5-12.0) SEC INR APTT (24.5-32.8) SEC D-Dimer, Quantitative (0-400) ng/mL Sodium 144 (136-145) mmol/L Potassium 4.2 (3.5-5.1) mmol/L Chloride 111 H (98-107) mmol/L Carbon Dioxide 23.1 (21.0-32.0) mmol/L BUN 17 (7-18) mg/dL Creatinine 0.98 (0.51-1.17) mg/dL Est Cr Clr Drug Dosing 63.82 mL/min Estimated GFR (MDRD) 59 mL/min Glucose 99 (74-106) mg/dL Hemoglobin A1c 5.1 (4.3-5.7) % Lactic Acid (0.4-2.0) mmol/L Uric Acid (2.6-7.2) mg/dL Calcium 8.7 (8.5-10.1) mg/dL Magnesium (1.8-2.4) mg/dL Iron (50-175) ug/dL TIBC (250-450) ug/dL % Saturation Ferritin (8-388) ng/mL Total Bilirubin 0.3 (0.2-1.0) mg/dL AST 11 L (15-37) U/L ALT 18 (12-78) U/L Alkaline Phosphatase 70 (46-116) IU/L Creatine Kinase 45 (26-308) U/L Creatine Kinase Index 0.9 (0.0-2.5) % CK-MB (CK-2) 0.40 (0.00-3.60) ng/mL Troponin I 0.000 (0.000-0.056) ng/mL NT-Pro-B Natriuret Pep (0-125) pg/mL Total Protein 6.6 (6.4-8.2) g/dL Albumin 3.2 L (3.4-5.0) g/dL Triglycerides 90 (30-150) mg/dL Cholesterol 178 (100-200) mg/dL LDL Cholesterol, Calc 125 H (0-100) mg/dL HDL Cholesterol 35 L (40-60) mg/dL TSH, Ultra Sensitive (0.358-3.740) mIU/mL 05/09/20 0720 Range/Units 07:20 07:20 WBC (4.0-10.2) K/uL RBC (3.77-5.09) M/uL Hgb (11.7-15.5) g/dL Hct (34.0-46.0) % MCV (84.0-98.0) fL MCH (28.2-33.3) pg MCHC (31.7-36.0) g/dL RDW (11.2-14.1) % Plt Count (150-350) K/uL Neut % (Auto) (45.0-80.0) % Lymph % (Auto) (10.0-50.0) % [place] % (Auto) (2.0-14.0) % Eos % (Auto) (0.0-5.0) % Baso % (Auto) (0.0-2.0) % Neut # (Auto) (1.40-7.00) K/uL Lymph # (Auto) (0.50-3.50) K/uL [place] # (Auto) (0.00-1.00) K/uL Eos # (Auto) (0.00-0.50) K/uL Baso # (Auto) (0.00-0.20) K/uL PT (9.5-12.0) SEC INR APTT (24.5-32.8) SEC D-Dimer, Quantitative < 100 (0-400) ng/mL Sodium (136-145) mmol/L Potassium (3.5-5.1) mmol/L Chloride (98-107) mmol/L Carbon Dioxide (21.0-32.0) mmol/L BUN (7-18) mg/dL Creatinine (0.51-1.17) mg/dL Est Cr Clr Drug Dosing mL/min Estimated GFR (MDRD) mL/min Glucose (74-106) mg/dL Hemoglobin A1c (4.3-5.7) % Lactic Acid (0.4-2.0) mmol/L Uric Acid (2.6-7.2) mg/dL Calcium (8.5-10.1) mg/dL Magnesium (1.8-2.4) mg/dL Iron 47 L (50-175) ug/dL TIBC 293 (250-450) ug/dL % Saturation [id number] Ferritin 36 (8-388) ng/mL Total Bilirubin (0.2-1.0) mg/dL AST (15-37) U/L ALT (12-78) U/L Alkaline Phosphatase (46-116) IU/L Creatine Kinase (26-308) U/L Creatine Kinase Index (0.0-2.5) % CK-MB (CK-2) (0.00-3.60) ng/mL Troponin I (0.000-0.056) ng/mL NT-Pro-B Natriuret Pep (0-125) pg/mL Total Protein (6.4-8.2) g/dL Albumin (3.4-5.0) g/dL Triglycerides (30-150) mg/dL Cholesterol (100-200) mg/dL LDL Cholesterol, Calc (0-100) mg/dL HDL Cholesterol (40-60) mg/dL TSH, Ultra Sensitive (0.358-3.740) mIU/mL [facility] Results - Last 24 hrs: None Med Orders - Current: Current Medications Acetaminophen (Tylenol) 650 mg PO Q4H PRN PRN Reason: Pain Albuterol (Proventil Neb Soln) 2.5 mg INH Q2H PRN PRN Reason: SHORTNESS OF BREATH Albuterol/Ipratropium (Duoneb 3.0-0.5 Mg/3 Ml) 3 ml NEB Q4HRRT PRN PRN Reason: Dyspnea Albuterol/Ipratropium (Duoneb 3.0-0.5 Mg/3 Ml) 3 ml NEB Q6HRRT [facility] Last Admin: 05/09/20 08:19 Dose: 3 ml Documented by: Budesonide (Pulmicort) 0.5 mg NEB BIDRT [facility] Last Admin: 05/09/20 08:21 Dose: 0.5 mg Documented by: Enoxaparin Sodium (Lovenox) 100 mg SUBCUT Q12H [facility] Last Admin: 05/09/20 05:41 Dose: 100 mg Documented by: Magnesium Oxide (Magnesium Oxide) 400 mg PO DAILY [facility] Last Admin: 05/09/20 08:19 Dose: 400 mg Documented by: Sodium Chloride (Saline Flush) 10 ml FLUSH ASDIRECTED PRN PRN Reason: Keep Vein Open Last Admin: 05/08/20 22:22 Dose: 10 ml Documented by: Sodium Chloride (Saline Flush) 10 ml FLUSH Q12HR PRN PRN Reason: Keep Vein Open Temazepam (Restoril) 15 mg PO BEDTIME PRN PRN Reason: Insomnia Last Admin: 05/08/20 22:22 Dose: 15 mg Documented by: Discontinued Medications Aspirin (Aspirin) 324 mg CHEW ONETIME ONE Stop: 05/08/20 16:19 Last Admin: 05/08/20 16:23 Dose: 324 mg Documented by: Famotidine (Pepcid) 40 mg IVPUSH ONETIME ONE Stop: 05/08/20 16:19 Last Admin: 05/08/20 16:25 Dose: 40 mg Documented by: Magnesium Oxide (Magnesium Oxide) 400 mg PO ONETIME ONE Stop: 05/08/20 17:29 Last Admin: 05/08/20 18:03 Dose: 400 mg Documented by: Ticagrelor (Brilinta) 180 mg PO ONETIME ONE Stop: 05/08/20 16:19 Last Admin: 05/08/20 16:24 Dose: 180 mg Documented by: - Exam Quality Assessment: Reports: DVT Prophylaxis (Lovenox). Denies: Supplemental Oxygen, Central Line/PICC, Urine Catheter, Skin Breakdown, Restraints General: Reports: Oriented, Cooperative, No Acute Distress HEENT: Reports: Pupils Equal, Pupils Reactive, EOMI, Mucous Membr. Moist/[place]. Denies: Scleral Icterus Neck: Reports: Supple, Trachea Midline, No JVD, No Thyromegaly, +2 Carotid Pulse wo Bruit. Denies: Lymphadenopathy Lungs: Reports: Clear to Auscultation, Normal Respiratory Effort. Denies: Rhonchi, Rub, Wheezing Cardiovascular: Reports: Regular Rate, Regular Rhythm, No Murmurs, Bradycardia (Occasional mild at time of exam). Denies: Gallops, Rubs GI/Abdominal Exam: Normal Bowel Sounds, Soft, Non-Tender, No Organomegaly, No Distention, No Abnormal Bruit, No Mass, Other (Obese. Stable nonincarcerated ventral abdominal/incisional hernia). No: Guarding (Female) Exam: Deferred Rectal (Female) Exam: Deferred Back Exam: Reports: Normal Inspection, Full Range of Motion. Denies: CVA Tenderness (L), CVA Tenderness (R), Muscle Spasm Extremities: Normal Inspection, Normal Range of Motion, Non-Tender, No Pedal Edema, Normal Capillary Refill. No: Margarita's Sign Skin: Reports: Warm, Dry, Intact, Other (Tattoos). Denies: Ecchymosis Neurological: Reports: No New Focal Deficit, Other (No clinical orthostasis) Psy/Mental Status: Reports: Alert, Normal Affect, Normal Mood. Denies: Agitated, Hallucinations, Withdrawal Symptoms EKG INTERPRETATION EKG Date: 05/09/20 Time: 07:57 Rhythm: Other (Sinus bradycardiaimproved) Rate (Beats/Min): 54 [place]: Normal (Neutral which is a change from previous left cardiac axis) P-Wave: Enlarged (Diffuse biphasic P wavesmild) QRS: Normal (0.08 seconds) ST-T: Normal QT: Normal [place]/PQ Interval: 0.14 seconds with no delta waves Comparison: Change From Previous EKG (As above since 05/08/20) EKG Interpretation Comments: 1. No acute ischemic changes 2. Sinus bradycardiaimproved
== END 2020-05-09 11:00 | disposition home or self-care (01) ==
LOC: LL.ED 16:05 → UNDOADMOB 17:09 → LL.MS 17:09
PROVIDERS: ADMIT Family Medicine; ATTEND Family Medicine
DX: R07.2 Precordial pain (principal); E83.42 Hypomagnesemia; D50.9 Iron deficiency anemia, unspecified; F41.8 Other specified anxiety disorders; K21.9 Gastro-esophageal reflux disease without esophagitis; E66.9 Obesity, unspecified; R00.1 Bradycardia, unspecified; D50.8 Other iron deficiency anemias; E78.5 Hyperlipidemia, unspecified; F17.210 Nicotine dependence, cigarettes, uncomplicated; E88.09 Other disorders of plasma-protein metabolism, not elsewhere classified; M89.49 Other hypertrophic osteoarthropathy, multiple sites; J43.1 Panlobular emphysema; Z71.6 Tobacco abuse counseling; Z88.6 Allergy status to analgesic agent; Z68.35 Body mass index [BMI] 35.0-35.9, adult; Z79.899 Other long term (current) drug therapy
CPT/HCPCS: 36415; 71045; 80053; 80061; 82550; 82553; 82728; 83036; 83540; 83550; 83605; 83735; 83880; 84443; 84484; 84550; 85025; 85379; 85610; 85730; 93005; 93010; 94640; 96372; 96374; 99217; 99219; 99285; A9270; G0378; J1650; J3490; J7620-GY